=== PATIENT | male | born 1970 | race Caucasian/White ===

== ENCOUNTER 2022-06-09 08:00 | Outpatient (CLI) | payer BC, SELFPAY ==
--- NOTE | 2022-06-09 08:15 | MR_ITS ---
[address] [address] Phone:?[phone] Fax:?[phone] Referring Physician Information: Walter Spears M.D. [address] [facility] [address] Phone:?[phone] Fax:?[phone] Patient:Miguelina Lopez D.O.B:?1970 Sex:?Male Phone:?[phone] [facility] MRN:?[id number] Exam Date:?06/09/2022 ? EXAM: MRI OF THE RIGHT SHOULDER CLINICAL INFORMATION: The patient is a 52-year-old with right shoulder pain. Evaluate for rotator cuff tear. PRIOR SURGERY: None reported. COMPARISON STUDIES: There are no prior studies available for comparison. TECHNICAL INFORMATION: Using a 1.5T MR scanner and a localizing shoulder surface coil: 3.0 mm?coronal obliques: PD, T2, STIR 3.0 mm?sagittal obliques: PD, T2 3.0 mm?axials: PD, T2 FINDINGS: Articular/Extraarticular collections: Effusion: Mild. Subacromial/subdeltoid: Mild to moderate fluid is seen within the subacromial/subdeltoid bursa, in keeping with changes of bursitis. Low signal intensity material within the bursa is noted anterolaterally on coronal series 4 image 11 and on sagittal series 7 image 6. The low signal intensity material measures approximately 15 mm in greatest dimension. The findings are in keeping with hydroxyapatite deposition and/or calcific bursitis. Subcoracoid: No evidence for bursitis. Osseous structures: Proximal humerus: No evidence for bony injury to the proximal humerus can be seen. There is no evidence for greater tuberosity fracture. No Hill-Sachs or reverse Hill-Sachs deformity is seen. Glenoid: No acute bony abnormality of the glenoid fossa or glenoid neck can be seen. Acromioclavicular joint: Mild changes of acromioclavicular joint arthrosis are present. Coracoacromial arch: Acromion morphology: Type I. No evidence for os acromiale. Acromiohumeral space: Mildly narrowed. Coracohumeral space: Within normal limits. Rotator cuff and deltoid: Supraspinatus: Mild to moderate changes of supraspinatus tendinosis are present. There is low signal intensity material within the supraspinatus tendon fibers anteriorly and posteriorly, in keeping with hydroxyapatite deposition and/or calcific tendinitis. The largest area of intrasubstance low signal intensity measures approximately 7 mm in greatest dimension. No well-defined full or partial-thickness tearing of the supraspinatus tendon fibers can be seen. No atrophic changes of the supraspinatus muscle belly are present. Infraspinatus: Mild to moderate infraspinatus tendinosis can be seen. Low signal intensity material within the distal tendon fibers can be seen, in keeping with calcific tendinosis. No full or partial-thickness tearing is present. No atrophic changes of the infraspinatus muscle belly are identified. Teres minor: No evidence for tendinosis, tearing, or associated muscle belly atrophy. Subscapularis: There is poorly defined full-thickness tearing of the subscapularis tendon seen on axial series 3 image 16 and on sagittal series 7 image 13. The area of tearing is thought to measure approximately 15 mm in greatest dimension. Atrophic changes of the subscapularis muscle belly can be seen on sagittal series 7 image 27. Deltoid: No evidence for strain or tearing. Biceps tendon: Mild tendinosis and flattening of the long head of the biceps can be seen. There is no evidence for biceps rupture. No dislocation or subluxation is identified. Glenohumeral joint and labrum: Articular Cartilage: No chondral injuries along the articular surfaces of the glenohumeral articulation can be seen. Labrum: The anterior, posterior, superior, and inferior portions of the labrum appear intact. No evidence for paralabral ganglion cyst formation can be seen. Capsular Soft Tissues: No definite capsular abnormalities of the glenohumeral joint are seen. No evidence for capsular tearing is present and there are no MR signs of adhesive capsulitis. CONCLUSION: 1. Supraspinatus and infraspinatus calcific tendinosis as described above. No full or partial-thickness tearing of the supraspinatus or infraspinatus tendon fibers can be seen. 2. Suspected full-thickness tearing of the subscapularis tendon with associated muscle belly atrophy. 3. Mild to moderate subacromial/subdeltoid bursal fluid, with low signal intensity material. The findings are in keeping with calcific bursitis and/or hydroxyapatite deposition. 4. Mild tendinosis and flattening of the long head of the biceps. 5. Mild acromioclavicular joint arthrosis with mild narrowing of the acromiohumeral space. [facility]EC Electronically signed on 06/09/2022 1:38:00 PM by Mendez Lopez M.D.
== END 2022-06-09 08:01 | disposition home or self-care (01) ==
LOC: MRI 08:01
PROVIDERS: PCP Surgery; Visit Provider Orthopaedic Surgery Sports Medicine
DX: M25.511 Pain in right shoulder (principal); M75.101 Unspecified rotator cuff tear or rupture of right shoulder, not specified as traumatic; M75.51 Bursitis of right shoulder
CPT/HCPCS: 73221

== ENCOUNTER 2025-01-13 17:23 | Inpatient (IN) | payer BC, SELFPAY ==
--- OUTSIDE RECORDS SUMMARY | 2025-01-13 17:25 | XMS_ITS | Clinical Summary ---
Author Organization [employer] [facility] Address [address] [place] [address] Care Team Providers Care Shaper Set Up Operator Name Role Phone Peace Maloneydavide Agarwal PsyD, LP Unavailable [phone] Allergies No known active allergies Medications ibuprofen (ADVIL; MOTRIN) 200 mg tablet Take 2 tablets by mouth 4 times daily if needed. 0 7 Active sildenafiL, pulm.hypertension, (REVATIO) 20 mg tabletIndications: Erectile dysfunction, unspecified erectile dysfunction type TAKE 2-5 TABLETS BY MOUTH 30 MINUTES BEFORE SEXUAL ACTIVITY NEEDED. 200 Tablet 4 Active busPIRone (BUSPAR) 30 mg tabletIndications: VASQUEZ (generalized anxiety disorder) Take 1 Tablet (30 mg) by mouth two times daily. 180 Tablet 3 5 Active escitalopram oxalate (LEXAPRO) 10 mg tabletIndications: VASQUEZ (generalized anxiety disorder) Take 1 Tablet (10 mg) by mouth once daily. 90 Tablet 3 5 Active lisinopriL (PRINIVIL; ZESTRIL) 10 mg tabletIndications: Primary hypertension Take 1 Tablet (10 mg) by mouth once daily. 90 Tablet 3 5 Active rosuvastatin (CRESTOR) 20 mg tabletIndications: Mixed hyperlipidemia Take 1 Tablet (20 mg) by mouth at bedtime. 90 Tablet 3 5 Active lisinopriL (PRINIVIL; ZESTRIL) 10 mg tabletIndications: Primary hypertension TAKE ONE TABLET BY MOUTH ONE TIME DAILY 30 Tablet 5 025 Discontin ued(Reord er (E-cancel not sent)) busPIRone (BUSPAR) 30 mg tabletIndications: Anxiety TAKE ONE TABLET BY MOUTH TWICE DAILY 60 Tablet 5 025 Discontin ued(Reord er (E-cancel not sent)) escitalopram oxalate (LEXAPRO) 10 mg tabletIndications: Anxiety Take 1 Tablet (10 mg) by mouth once daily. 30 Tablet 5 025 Discontin ued(Reord er (E-cancel not sent)) rosuvastatin (CRESTOR) 10 mg tabletIndications: Mixed hyperlipidemia TAKE ONE TABLET BY MOUTH ONE TIME DAILY AT BEDTIME 30 Tablet 5 025 Discontin ued(Reord er (E-cancel not sent)) rosuvastatin (CRESTOR) 10 mg tabletIndications: Mixed hyperlipidemia Take 1 Tablet (10 mg) by mouth at bedtime. 90 Tablet 3 5 025 Discontin ued(*Medi cation adjustmen t) Active Problems Problem Noted Date Diagnosed Date Mixed hyperlipidemia 12/15/2024 Primary hypertension 12/15/2024 Insomnia 03/19/2015 Erectile dysfunction 03/19/2015 Sigmoid diverticulitis 03/19/2015 Anxiety 03/19/2015 Adenomatous colon polyp 02/27/2015 Overview (07/02/2023): Colonoscopy 02/2015 polyps repeat in 3 years Colonoscopy 04/2018 polyp, repeat in 5 years Colonoscopy 06/2023 SSA, repeat in 5 years Calcific tendinitis of right shoulder 03/27/2014 Encounters Date Type Department Care Team Description 01/04/2025 1:00 PM CDT Phone Office Visit [facility] [address] [facility] [address] [place] [address] Nathalia Maloney, Russell, LP Individual Therapy; Phone Visit 12/15/2024 3:40 PM CDT Office Visit [facility] [address] [place] [address] Sushma Gonzales PA Physical (54 years old) 12/15/2024 Travel 11/23/2024 Refill [facility] [address] [place] [address] Sushma Gonzales PA Refill Request (Lisinopril, Buspirone, Escitalopram Oxalate, Rosuvastatin) 11/09/2024 1:00 PM CDT Phone Office Visit [facility] [address] [place] [address] Nathalia Maloney, PsItzel, LP MH Trmt Plan; Individual Therapy; Phone Visit 11/09/2024 Travel 10/23/2024 Refill [facility] [address] [place] [address] Sushma Gonzales PA Refill Request (Lisinopril) from Last 3 Months Immunizations Immunization Administration Dates Next Due Influenza RIV4 (Age 18+ Years) PRESERV FREE 11/2021 Influenza, IIV4 04/16/2021,04/07/2020 Td (Age >=7 Years) 11/03/2021 Tdap 04/08/2015 Family History Medical History Relation Name Comments Good Health Father Diabetes Mother Hypertension Mother Relation Name Status Comments Father Mother Social History Tobacco Use Types Packs/Day Years Used Date Smoking Tobacco: Never Smokeless Tobacco: Never Tobacco Cessation:Counseling Given: Yes Alcohol Use Standard Drinks/Week Comments Yes 0 (1 standard drink = 0.6 oz pur e alcohol) 1-2 drinks/week PHQ-2 Answer Date Recorded PHQ-2 TOTAL SCORE 0 12/15/2024 Social Connections Answer Date Recorded Do you often feel lonely or isolated from those around you? 0 12/15/2024 Alcohol Use Answer Date Recorded How often do you have a drink containing alcohol ? 2 10/29/2021 How many drinks containing a lcohol do you have on a typical day when you are drinking? 0 10/29/2021 How often do you have five or more drinks on one occasion? 0 10/29/2021 Financial Resource Strain Answer Date R ecorded Difficulty of Paying Living Expenses 3 12/15/2024 Difficulty of Paying Living Expenses Not on file 12/15/2024 Food Insecurity Answer Date Recorded Do you worry your food will run out before you are able to buy more? 1 12/15/2024 Transportation Needs Answer Date Record ed Does lack of transportation keep you from medica l appointments? 1 12/15/2024 Does lack of transportation keep you from work, meetings or getting things that you need? 1 12/15/2024 Housing Stability Answer Date Recorded What is your housing situation today? 1 12/15/2024 Utilities Answer Date Recorded Do you have trouble paying f or utilities (for example, heat, electricity, water, phone)? 1 12/15/2024 Sex and Gender Information Value Date Recorded Sex Assigned at Male 12/21/2019 11:50 AM CDT Legal Sex Male 6:25 PM MEDICAL PRACTICE ADMINISTRATOR Gender Identity Male 12/21/2019 11:50 AM CDT Sexual Orientation Straight 12/21/2019 11 :50 AM CDT Obstetrics History Last Filed Vital Signs Vital Sign Reading Time Taken Comments Blood Pressure 116/80 12/15/2024 3:38 PM CDT Pulse 90 12/15/2024 3:38 PM CDT Temperature 36.4 C (97.5 F) 06/04/2024 4:30 PM MEDICAL PRACTICE ADMINISTRATOR Respiratory Rate 16 06/04/2024 4:30 PM MEDICAL PRACTICE ADMINISTRATOR Oxygen Saturation 97% 12/15/2024 3:38 PM CDT Inhaled Oxygen Concentration - - Weight 122.5 kg (270 lb) 12/15/2024 3:38 PM CDT Height 178.4 cm (5' 10.25) 12/15/2024 3:38 PM C DT Body Mass Index 38.47 12/15/2024 3:38 PM CDT Plan of Treatment Upcoming Encounters Date Type Department Care Team (Late st Contact Info) Description 02/01/2025 1:00 PM CDT Phone Office [facility] [place] [address] [facility] [address] [address] Nathalia Maloney PsyD, LP [facility] [address] [address] 03/07/2025 2:00 PM MEDICAL PRACTICE ADMINISTRATOR Phone Office Visit [facility] [address] [address] Nathalia Maloney PsyD, LP [address] [facility] [address] [address] 04/04/2025 2:00 PM MEDICAL PRACTICE ADMINISTRATOR Phone Office Visit [facility] [address] [place], [place] [id number] Nathalia Maloney PsyD, LP [address] [place], [place] [id number] 05/09/2025 3:00 PM MEDICAL PRACTICE ADMINISTRATOR Phone Office Visit [facility] [address] [place], [place] [phone] Nathalia Maloney PsyD, LP [address] [place], [place] [id number] Health Maintenance Due Date Last Done Comments Hepatitis B series for 19+ ( 1 of 3 - 19+ 3-dose series) 1987 Pneumococcal series for age 50+ (1 of 1 - PCV) 2018 Zoster (shingles) series for age 50+ (1 of 2) 2018 COVID-19 vaccine series ( season) 2024 09/29/2021, 03/19/2021, 07/28/2020 Influenza Vaccine (#1) 2024 , 04/16/2021, 04/07/2020 BMI (ht and wt on same day) for age 18+ 12/15/2025 12/15/2024, 07/30/2023, 07/06/2022, Additional history exists Depression screening for age 12+ 12/15/2025 12/15/2024, 08/02/2023, 07/30/2023, Additional history exists Colonoscopy through age 75 06/29/202806/29, 06/30/2023, 05/06/2018, Additional history exists Lipids for age 45-75 12/15/2029 12/15/2024, 01/10/2024, 07/30/2023, Additional history exists Tetanus booster 11/04/2031 11/03/2021, 04/08/2015 RSV vaccine for adults or (1 - 1-dose 75+ series) 2043 HIV for age 15-65 Completed 07/30/2023 Hepatitis C screening for ag e 18-79 Completed 07/30/2023 Procedures Procedure Name Priority Date/Time Associated Diagnosis Comments BASIC METABOLIC PANEL Routine 12/15/2024 4:33 PM CDT Screening for diabetes mellitus (DM) LIPID PANEL W REFLEX MEASURED LDL Routine 12/15/2024 4:33 PM CDT Mixed hyperlipidemia PSA TOTAL Routine 12/15/2024 4:33 PM CDT Encounter for screening for malignant neoplasm of prostate ANTI HIV 1/2 Routine 07/30/2023 4:13 PM CDT Encounter for screening for human immunodeficiency virus (HIV) ANTI HCV Routine 07/30/2023 4:13 PM CDT Encounter for hepatitis C screening test for low risk patient COLONOSCOPY 06/30/2023 10:24 AM CDT from Last 3 Months or Most Recently Relevant to Health Maintenance Results * (ABNORMAL) LIPID PANEL W REFLEX MEASURED LDL (12/15/2024 4:33 PM CDT) CHOLESTEROL, TOTAL 135 <200 mg/dL 12/16/2024 4:12 AM CDT [facility] TRIGLYCERIDES 189(H) <150 mg/dL 12/16/2024 4:12 AM CDT [facility] HDL CHOLESTEROL 51 > OR = 40 mg/dL 12/16/2024 4:12 AM CDT [facility] NON HDL CHOLESTEROL 84 <130 mg/dL (calc) 12/16/2024 4:12 AM CDT [facility] Comment: For patients with diabetes plus 1 major ASCVD risk factor, treating to a non-HDL-C goal of <100 mg/dL (LDL-C of <70 mg/dL) is considered a therapeutic option. CHOL/HDLC RATIO 2.6 <5.0 (calc) 12/16/2024 4:12 AM CDT [facility] LDL-CHOLESTEROL 58 mg/dL (calc) 12/16/2024 4:12 AM CDT [facility] Comment: Reference range: <100 Desirable range <100 mg/dL for primary prevention; <70 mg/dL for patients with CHD or diabetic patients with > or = 2 CHD risk factors. LDL-C is now calculated using the Cristobal calculation, which is a validated novel method providing better accuracy than the Friedewald equation in the estimation of LDL-C. Ermias MIDDLETON et al. JOJO. 2013;310(06): 9020-4627 (http://education.[employer]/faq/AJS408) Blood BLOOD SPECIMEN / Unknown [facility] / Unknown 12/15/2024 4:33 PM CDT 12/15/2024 4:34 PM CDT Sushma MEZA CHEMISTRY Final Res ult Performing Organization Address [facility] de Phone Number [facility] [address] [address], * PSA TOTAL (DIAG OR SCREEN) (12/15/2024 4:33 PM CDT) PSA, TOTAL 1.27 < OR = 4.00 ng/mL 12/16/2024 4:35 AM CDT [facility] Comment: The total PSA value from this assay system is standardized against the WHO standard. The test result will be approximately 20% lower when compared to the equimolar-standardized total PSA (Antoinette Shabnam). Comparison of serial PSA results should be interpreted with this fact in mind. This test was performed using the Siemens chemiluminescent method. Values obtained from different assay methods cannot be used interchangeably. PSA levels, regardless of value, should not be interpreted as absolute evidence of the presence or absence of disease. Blood BLOOD SPECIMEN / Unknown [facility] / Unknown 12/15/2024 4:33 PM CDT 12/15/2024 4:34 PM CDT Sushma MEZA CHEMISTRY Final Res ult Performing Organization Address [facility]/ZIP Co de Phone Number [facility] [address] [address], [place] [phone] * BASIC METABOLIC PANEL (12/15/2024 4:33 PM CDT) Pathologist [facility] SODIUM 139 135 - 146 mmol/L 12/16/2024 4:12 AM CDT [facility] POTASSIUM 4.3 3.5 - 5.3 mmol/L 12/16/2024 4:12 AM CDT [facility] CARBON DIOXIDE 24 20 - 32 mmol/L 12/16/2024 4:12 AM CDT [facility] GLUCOSE 95 65 - 99 mg/dL 12/16/2024 4:12 AM CDT [facility] Comment: Fasting reference interval CALCIUM 9.0 8.6 - 10.3 mg/dL 12/16/2024 4:12 AM CDT [facility] CREATININE 0.94 0.70 - 1.30 mg/dL 12/16/2024 4:12 AM CDT [facility] BUN/CREATININE RATIO SEE NOTE: 6 - 22 (calc) 12/16/2024 4:12 AM CDT [facility] Comment: Not Reported: BUN and Creatinine are within reference range. EGFR 95 > OR = 60 mL/min/1. 73m2 12/16/2024 4:12 AM CDT [facility] UREA NITROGEN (BUN) 10 7 - 25 mg/dL 12/16/2024 4:12 AM CDT [facility] ELECTROLYTE BALANCE 10 7 - 17 mmol/L (calc) 12/16/2024 4:12 AM CDT [facility] CHLORIDE 105 98 - 110 mmol/L 12/16/2024 4:12 AM CDT [facility] Blood BLOOD SPECIMEN / Unknown [facility] / Unknown 12/15/2024 4:33 PM CDT 12/15/2024 4:34 PM CDT us Sushma MEZA CHEMISTRY Final Res ult [facility] [address] [place] [address], [place] [phone] * ANTI HCV [02911.2] (07/30/2023 4:13 PM CDT) Pathologist [facility] HEPATITIS C ANTIBODY Non-Reacti ve Non-React nisha 07/30/2023 9:51 PM CDT [facility] Comment:Please note, per www .CDC.gov: If a patient is known to be at high risk of HCV infection, or is symptomatic, and the physician's suspicion of HCV infection is high, HCV RNA testing is often employed and is of diagnostic value, even after an initial negative anti-HCV test result. Blood BLOOD SPECIMEN / Unknown [facility] / Unknown 07/30/2023 4:13 PM CDT 07/30/2023 4:16 PM CDT Sushma MEZA SEND OUTS Final Res ult Performing Organization Address [facility] Co de Phone Number [facility] [address] [place] [address], [place] * ANTI HIV 1/2 [17397.0] (07/30/2023 4:13 PM CDT) HIV-1/HIV-2 SCREEN Non-Reacti ve Non-Reacti ve 07/30/2023 9:51 PM CDT [facility] Comment:HIV-1 p24 and HIV-1/ HIV-2 Ab Not Detected. Blood BLOOD SPECIMEN / Unknown [facility] / Unknown 07/30/2023 4:13 PM CDT 07/30/2023 4:16 PM CDT Sushma MEZA SEND OUTS Final Res ult Performing Organization Address City/[facility] Co de Phone Number [facility] [address] [place] [address], [place] * COLONOSCOPY (06/30/2023 10:24 AM CDT) 06/30/2023 10:2 4 AM CDT Narrative Transcriptions Ermias Shetty MD - 06/30/2023 11:26 AM CDT Patient Name: Chadd Lopez Procedure Date: 06/30/2023 Gender: Male Date of : 1970 Admit Type: Outpatient Procedure: Colonoscopy Proceduralist: Ermias Shetty MD , Effie Gutierrez RN(Nurse), Swapna Vazquez RN (Nurse) Indications/Pre-Op Diagnosis: High risk colon cancer surveillance:Personal history of sessile serrated colon polyp(less than 10 mm in size) with no dysplasia, Last colonoscopy: May 2018 Medications: Fentanyl 100 micrograms IV, Midazolam 4 mgIV, The level of sedation administered wasmoderate Procedure Description: The patient had risks, benefits and alternatives explained to andgave informed consent. The patient had a stable cardiopulmonary status and judged an adequate candidate for conscious sedation. The [id number] was passed through the anus and advanced to the cecum, identified by appendiceal orifice and ileocecal valve. Thecolonoscopy was performed without difficulty. The patient tolerated the procedure well. The quality of the bowel preparation was good. The ileocecal valve, appendiceal orifice, and rectum were photographed. Complications: No immediate complications. Estimated Blood Loss & Specimen: Estimated blood loss: none. Specimen collected - Yes and sent to Laboratory Findings: The perianal and digital rectal examinations were normal. A 3 mm polyp was found in the ascending colon. The polyp was sessile. The polyp was removed with a cold snare. Resection and retrieval were complete. A few small-mouthed diverticula were found in the descending colon. There was evidence of a prior end-to-end colo-colonic anastomosis inthe recto-sigmoid colon. This was patent and was characterized by healthy appearing mucosa. The exam was otherwise without abnormality. Impressions/Post-Op Diagnosis: - One 3 mm polyp in the ascending colon, removed with a cold snare. Resected and retrieved. - Diverticulosis in the descending colon. - Patent end-to-end colo-colonic anastomosis, characterized byhealthy appearing mucosa. - The examination was otherwise normal. Recommendation: - Patient has a contact number available for emergencies. The signsand symptoms of potential delayed complications were discussed with the patient. Return to normal activities tomorrow. Written discharge instructions were provided to the patient. - Resume previous diet. - Continue present medications. - Await pathology results. - Repeat colonoscopy is recommended. The colonoscopy date will be determined after pathology results from today's exam become available for review. Moderate Sedation: A time out was performed before the procedure. Moderate (conscious) sedation was administered by the endoscopy nurse and supervised bythe endoscopist. The following parameters were monitored: oxygensaturation, heart rate, blood pressure, EKG, CO2, respiratory rate, adequacy of pulmonary ventilation and reponse to care. Please refer to the patient's medical record flowsheets and nursing notes for moderate sedation details. Total physician intraservice time was 22 minutes. Ermias Shetty MD 06/30/2023 11:26:31 AM This report has been signed electronically. Note Initiated On: 06/30/2023 10:24 AM Procedure Code(s): --- Professional --- 60005, Colonoscopy, flexible; with removalof tumor(s), polyp(s), or other lesion(s) bysnare technique Diagnosis Code(s): --- Professional --- Z86.010, Personal history of colonicpolyps D12.2, Benign neoplasm of ascending colon Z98.0, Intestinal bypass and anastomosisstatus K57.30, Diverticulosis of large intestine without perforation or abscess withoutbleeding CPT copyright 2021 [employer]. All rights reserved. The codes documented in this report are preliminary and upon fiscal analyst reviewmay be revised to meet current compliance requirements. Scope In: 10:53:26 AM Scope Withdrawal Time 0 hours 15 minutes 56 seconds Scope Out: 11:12:37 AM us Ermias Shetty MD PROCEDURE ORD Final Res ult from Last 3 Months or Most Recently Relevant to Health Maintenance Insurance [facility] Care Teams Shaper Set Up Operator Relationship Specialty Start Date End Date Nathalia Maloney PsyD, LP [address] [facility] [address] [place] [address] Mental Health Provider Psychology 07/12/19
[2025-01-13 17:29] VITALS: BP 142/85; PULSE 103; RESP 24; TEMP 35.5; O2SAT 93
--- NOTE | 2025-01-13 17:49 | CRLHL7_ITS ---
For Patients: As a result of the Century Cures Act, medical imaging exams and procedure reports are released immediately into your electronic medical record. You may view this report before your referring provider. If you have questions, please contact your health care provider. INDICATION: Lower abdominal pain. TECHNIQUE: CT abdomen and pelvis acquired with 99 cc Isovue 370 IV contrast. COMPARISON: None. FINDINGS: Lower chest: Bibasilar atelectasis. Liver: Unremarkable. Gallbladder and bile ducts: Cholecystectomy. No suspicious biliary dilatation. Pancreas: Unremarkable. Spleen: Unremarkable. Adrenal glands: Unremarkable. Kidneys: Symmetric renal enhancement. No hydronephrosis or hydroureter. No obstructing calculi. Exophytic left renal cyst. GI tract: Duodenal diverticulum measuring up to 3.0 cm. Colonic diverticulosis with prominent pericolonic edema/inflammatory fat stranding along the sigmoid colon within the left lower quadrant and region of numerous diverticula. Tiny foci of extraluminal gas are noted in the vicinity (for example series 2, image 113). No well-delineated fluid collection/abscess appreciated at this time. No bowel obstruction. Vasculature: No abdominal aortic aneurysm. Grossly patent vasculature. Lymph nodes: No suspicious lymphadenopathy. Peritoneum/Abdominal Wall: Trace ascites. Small foci of free air, as above. No acute abnormality of the abdominal wall. Pelvis: Normal bladder. Unremarkable prostate and seminal vesicles. Bones: No acute abnormality. IMPRESSION: 1. Findings compatible with acute sigmoid colonic diverticulitis with tiny foci of extraluminal gas noted in vicinity of inflamed diverticula, indicative of focal perforation. Surrounding phlegmonous changes are evident without well-delineated fluid collection/abscess appreciated at this time. Please note that all CT scans at this facility use dose modulation, iterative reconstruction, and/or weight-based dosing when appropriate to reduce radiation dose to as low as reasonably achievable. Dictated by Mendez Lau MD @ 01/13/2025 6:55:57 PM (Electronically Signed)
--- NOTE | 2025-01-13 17:50 | ED.ABDPAIN ---
HPI - Abdominal Pain General Chief Complaint: Abdominal Pain Stated Complaint: Pain of Left side Time Seen by Provider: 01/13/25 17:28 History of Present Illness HPI narrative: This 54-year-old male comes in reporting left-sided abdominal pain for the past 2 days. He states that the pain is a constant pain and is worse with cough and other movements. He does have a history of diverticulitis and states that he had his sigmoid colon removed 24 years ago. He has been doing well since then except as had a few episodes of pain occasionally since then. He states that he feels tired despite sleeping. He does not report any fevers. He does not have any dysuria symptoms or altered bowel function. Related Data Home Medications ?Medication ?Instructions ?Recorded ?Confirmed escitalopram oxalate 10 mg tablet 10 mg PO DAILY 06/02/22 01/18/25 sildenafil (pulm.hypertension) 20 20 mg PO 06/02/22 06/12/22 mg tablet lisinopril 10 mg tablet 10 mg PO DAILY 01/13/25 01/18/25 rosuvastatin 20 mg tablet 20 mg PO QPM 01/13/25 01/18/25 buspirone 30 mg tablet 30 mg PO BID 01/14/25 01/18/25 Allergies Allergy/AdvReac Type Severity Reaction Status Date / Time No Known Drug Allergies Allergy Verified 01/25/25 14:07 Review of Systems Status of ROS Reports: 10 or more systems reviewed and unremarkable except as noted in History and below Narrative Constitutional: No fevers, no weight gain or loss. Eyes: No discharge. No vision changes. HENT: No congestion, no sore throat, no ear pain. Cardiovascular: No chest pain, no palpitations. Respiratory: No shortness of breath, no wheezes, no cough. Gastrointestinal: No vomiting, no diarrhea. Left-sided abdominal pain as described above. Genitourinary: No dysuria, no hematuria. Musculoskeletal: Normal range of motion. Skin: No rashes, no pruritis. Neurological: No dizziness, weakness, sensory change, speech change. Endo/Heme/Allergies: No bruising or bleeding. No polydipsia. Pysch: no suicidality, no anxiety, no insomnia. All other systems reviewed and are negative. [facility] History (Updated 01/14/25 @ 15:22 by Audrey Mchugh MD) Status post colectomy ?Z90.49 - Acquired absence of other specified parts of digestive tract (ICD-10) History of resection of small bowel (08/03/17) ?Z90.49 - Acquired absence of other specified parts of digestive tract (ICD-10) S/P herniorrhaphy (04/23/15) ?Z98.890 - Other specified postprocedural states (ICD-10) ?Z87.19 - Personal history of other diseases of the digestive system (ICD-10) Hx laparoscopic cholecystectomy (04/23/15) ?Z90.49 - Acquired absence of other specified parts of digestive tract (ICD-10) History of knee surgery ?Z98.890 - Other specified postprocedural states (ICD-10) History of shoulder surgery ?Z98.890 - Other specified postprocedural states (ICD-10) History of appendectomy ?Z90.49 - Acquired absence of other specified parts of digestive tract (ICD-10) Family History (Updated 01/14/25 @ 15:20 by Audrey Mchugh MD) Mother High blood pressure Diabetes Psychiatric disorder Social History (Updated 01/14/25 @ 15:20 by Audrey Mchugh MD) Narrative: 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 He does not smoke. Rare alcohol. What is your current living situation?: I presently have a place to live Problems where you live: no known problems Problems where you live details: n/a In the past 12 months, utilities in danger of being shut off: no In past 12 months, lack of transportation kept you from medical appts, meetings, work, or getting things needed for daily living: no In the past 12 mos, have been you worried that your food would run out before you had money to buy more?: never true In the past 12 mos, the food you bought just didn't last and you didn't have money to buy more?: never true Highest level of school completed/degree received: high school graduate Smoking Status: Never smoker Do you use any of these nicotine containing products: None Second hand tobacco smoke exposure: No How often do you have a drink containing alcohol: never AUDIT-C Alcohol total score: 0 Non-prescribed substance use: marijuana (any form) Caffeine: No How often does anyone, including family, friends and others, physically hurt you: never How often does anyone, including family, friends and others, insult or talk down to you: never How often does anyone, including family, friends and others, threaten you with harm: never How often does anyone, including family, friends and others, scream or curse at you: never service: No Exam Narrative: Exam Narrative: Constitutional: Well-developed, well-nourished, no acute distress. HEENT: Normocephalic, atraumatic. Neck: Normal range of motion. Nontender. Supple. Heart: Regular. No murmurs. Normal rate. Intact distal pulses. Lungs: Clear to auscultation. No chest discomfort. No wheezes, rhonchi, or rales. Abdomen: Normal bowel sounds. Left-sided tenderness. No rebound tenderness. Genitalia: Deferred. Back: No midline tenderness. Normal range of motion. Extremities: Normal range of motion. No injury. Skin: Intact. No rash. Warm. No erythema or pallor. Neurologic: No altered sensation. No weakness. Alert and oriented. Psychiatric: No suicidality. No anxiety or depression. No insomnia. Nursing notes and vitals signs are reviewed. Const: Vital Signs, click to edit/add: Vital Signs - 24 hr 01/13/25 17:29 01/13/25 19:28 01/13/25 20:35 Temperature 96 F L 99.2 F Pulse Rate [Pulse Oximeter] 103 H 86 Pulse Rate [Right Pulse Oximeter] 89 Respiratory Rate 24 16 15 Blood Pressure [Ri ght Arm] 140/75 H Blood Pressure [Ri ght Upper Arm] 142/85 H 138/73 Pulse Oximetry 93 94 96 Oxygen Delivery Me thod Room Air Room Air Room Air 01/13/25 20:35 Temperature Pulse Rate [Pulse Oximeter] Pulse Rate [Right Pulse Oximeter] Respiratory Rate Blood Pressure [Ri ght Arm] Blood Pressure [Ri ght Upper Arm] Pulse Oximetry Oxygen Delivery Me thod Room Air Course Vital Signs Vital signs: Initial Vital Signs Temperature 96 F L 01/13/25 17:29 Temperature Source Temporal Artery Scan 01/13/25 17:29 Pulse Rate 103 H 01/13/25 17:29 Respiratory Rate 24 01/13/25 17:29 Blood Pressure 142/85 H 01/13/25 17:29 Blood Pressure Mean 104 01/13/25 17:29 Blood Pressure Position Sitting 01/13/25 17:29 Pulse Oximetry 93 01/13/25 17:29 Oxygen Delivery Method Room Air 01/13/25 17:29 Vital Signs Temperature 96 F L 01/13/25 17:29 Pulse Rate 103 H 01/13/25 17:29 Respiratory Rate 24 01/13/25 17:29 Blood Pressure 142/85 H 01/13/25 17:29 Pulse Oximetry 93 01/13/25 17:29 Oxygen Delivery Method Room Air 01/13/25 17:29 Temperature 98.0 F 01/16/25 11:27 Pulse Rate 61 01/16/25 11:27 Respiratory Rate 16 01/16/25 11:27 Blood Pressure 143/90 H 01/16/25 11:27 Pulse Oximetry 95 01/16/25 11:27 Oxygen Delivery Method Room Air 01/16/25 11:27 Medications Administered Medications: Discontinued Medications Generic Name Dose Route Start Last Admin Trade Name Freq PRN Reason Stop Dose Admin Buspirone HCl 30 mg 01/14/25 09:00 01/16/25 09:33 Buspirone 10 Mg Tablet PO 30 mg DAILY GONZÁLEZ Administration Enoxaparin Sodium 40 mg 01/13/25 21:00 01/15/25 22:52 Enoxaparin 40 Mg/0.4 Ml Inj SUBCUT 40 mg HS GONZÁLEZ Administration Escitalopram Oxalate 10 mg 01/14/25 09:00 01/16/25 09:34 Escitalopram 10 Mg Tablet PO 10 mg DAILY GONZÁLEZ Administration Piperacillin Sod/Tazobactam 100 mls @ 200 mls/hr 01/13/25 19:06 01/13/25 20:04 Sod 3.375 gm/ Sodium Chloride IVPB 01/13/25 19:07 Infused ONCE ONE Infusion Piperacillin Sod/Tazobactam 100 mls @ 200 mls/hr 01/14/25 02:00 01/16/25 09:35 Sod 3.375 gm/ Sodium Chloride IVPB Infused Q6H GONZÁLEZ Infusion Lactated Ringer's 1,000 mls @ 75 mls/hr 01/13/25 21:05 01/14/25 10:26 Lactated Ringers 1000 Ml IV Infused .[id number] GONZÁLEZ Infusion Lactated Ringer's 500 mls @ 500 mls/hr 01/13/25 21:15 01/13/25 22:56 Lactated Ringers 500 Ml IV 01/13/25 22:14 Infused .Q1H ONE Infusion Lactated Ringer's 1,000 mls @ 130 mls/hr 01/14/25 07:46 01/15/25 14:03 Lactated Ringers 1000 Ml IV Infused .[id number] GONZÁLEZ Infusion Potassium Chloride 10 meq in 100 mls @ 100 mls/hr 01/14/25 10:18 01/14/25 13:57 Potassium Chloride IVPB 01/14/25 11:17 Infused ONCE ONE Infusion Lactated Ringer's 500 mls @ 500 mls/hr 01/14/25 10:18 01/14/25 12:01 Lactated Ringers 500 Ml IV 01/14/25 11:17 Infused .Q1H ONE Infusion Piperacillin Sod/Tazobactam 100 mls @ 200 mls/hr 01/16/25 05:00 01/16/25 09:34 Sod 3.375 gm/ Sodium Chloride IVPB Infused Q6H GONZÁLEZ Infusion Ertapenem 1 gm/ Sodium 100 mls @ 200 mls/hr 01/16/25 12:00 01/16/25 12:50 Chloride IVPB Infused Q24H GONZÁLEZ Infusion Insulin Aspart 0 unit 01/14/25 07:30 01/16/25 12:46 Insulin Aspart 100 Unit/Ml SUBCUT Not Given ACHS [facility] Protocol Ketorolac Tromethamine 30 mg 01/13/25 21:00 01/15/25 22:47 Ketorolac 30 Mg/Ml Inj IVP 30 mg Q6H GONZÁLEZ Administration Ketorolac Tromethamine 30 mg 01/16/25 05:00 01/16/25 11:28 Ketorolac 30 Mg/Ml Inj IVP 30 mg Q6H GONZÁLEZ Administration Pantoprazole Sodium 40 mg 01/13/25 21:15 01/13/25 21:17 Pantoprazole Sodium 40 Mg Inj IVP 01/13/25 21:16 40 mg ONCE ONE Administration Rosuvastatin Calcium 20 mg 01/14/25 18:00 01/15/25 18:08 Rosuvastatin Calcium 10 Mg Tablet PO 20 mg QPM GONZÁLEZ Administration Sodium Chloride 5 ml 01/13/25 21:00 01/16/25 09:33 Sodium Chloride 0.9 % (Flush) 10 Ml Syringe IVF 5 ml BID GONZÁLEZ Administration MDM - Abdominal Pain MDM Narrative Medical decision making narrative: This patient comes in with left-sided abdominal pain and is suspicious for recurrent diverticulitis. CT scan is obtained and does show diverticulitis with a very small foci of free air suggesting a micro perforation. His white count returns at 17. He continues to have normal vital signs and is not requesting any pain medicines. I did speak with the surgeon on-call who recommended admission overnight with IV antibiotic and recheck in the morning regarding the possibility of complication of perforation. I spoke with Dr. Hugo, hospitalist on-call who agrees with this plan. The patient did receive an IV dose of Zosyn here. Lab Data Labs: Lab Results 01/13/25 01/13/25 01/13/25 Range/Units 17:34 18:06 20:51 WBC 17.25 H (4.50-11.00) K/uL RBC 5.05 (4.30-5.90) m/uL Hgb 15.2 (13.5-17.5) gm/dL Hct 44.7 (37.0-53.0) % MCV 89 (80-100) fL MCH 30 (26-34) pg MCHC 34 (32-36) gm/dL RDW Coeff of Govind 12.7 (11.5-15.5) % Plt Count 204 (140-440) K/uL Neut % (Auto) 81.4 H (42.0-72.0) % Lymph % (Auto) 5.3 L (20-44) % Valencia % (Auto) 12.9 H (0.0-11.0) % Eos % (Auto) 0.1 (0.0-7.0) % Baso % (Auto) 0.2 (0.0-3.0) % Neut # (Auto) 14.00 H (1.7-7.0) K/uL Lymph # (Auto) 0.90 (0.90-2.90) K/uL Valencia # (Auto) 2.20 H (0.00-0.90) K/UL Eos # (Auto) 0.00 (0.00-0.50) K/uL Baso # (Auto) 0.00 (0.00-0.30) K/uL Abs Immat Gran (auto) 0.00 (0.00-0.30) K/uL Imm/Tot Granulo (auto) 0.1 % Sodium 134 L (135-149) mmol/L Potassium 3.6 (3.6-5.1) mmol/L Chloride 99 (96-114) mmol/L Carbon Dioxide 26 (20-32) mmol/L Anion Gap 9 (7-15) mEq/L BUN 11 (7-30) mg/dL Creatinine 1.0 (0.5-1.5) mg/dL Estimated GFR 88 ml/min Glucose 150 H (60-115) mg/dL Hemoglobin A1c 5.6 (0-5.6) % Calcium 9.0 (8.4-10.6) mg/dL Magnesium 1.6 (1.5-2.6) mg/dL Total Bilirubin 1.2 (0.1-1.5) mg/dL Direct Bilirubin 0.3 (0.0-0.5) mg/dL AST 28 (12-35) U/L ALT 23 (4-50) U/L Alkaline Phosphatase 71 (40-150) U/L C-Reactive Protein 12.4 H (0.5-1.0) mg/dL Total Protein 7.8 (6.0-8.3) g/dL Albumin 4.2 (3.3-5.0) g/dL SARS-CoV-2 (PCR) Negative SARS-CoV-2 (Negative) Influenza Type A (PCR) Negative PCR FLU A (Negative) Influenza Type B (PCR) Negative PCR FLU B (Negative) RSV (PCR) Negative PCR RSV (Negative) Lab Acknowledgement Test Added Imaging Data CT scan - abdomen: Radiologist's impression: Findings compatible with acute sigmoid colonic diverticulitis with tiny foci of extraluminal gas noted in vicinity of inflamed diverticula, indicative of focal perforation. Surrounding phlegmonous changes are evident without well-delineated fluid collection/abscess appreciated at this time. Discharge Plan Discharge Clinical Impression: Diverticulitis Patient Disposition: Admitted As Observation Discharge Location: [facility] Condition: Improved Activity Level: No Restrictions Discharge Diet: Low Fiber
[2025-01-13 18:14] LABS: Hematocrit* 44.7 % (37.0-53.0); Hemoglobin* 15.2 gm/dL (13.5-17.5); Immature Granulocytes Pct Auto 0.1 %; Mean Corpuscular HGB Conc 34 gm/dL (32-36); Mean Corpuscular Hemoglobin 30 pg (26-34); Mean Corpuscular Volume 89 fL (80-100); RDW Coefficient of Variation % 12.7 % (11.5-15.5); Red Blood Count* 5.05 m/uL (4.30-5.90); White Blood Count* 17.25 K/uL (4.50-11.00)
[2025-01-13 18:19] LABS: Immature Granulocytes Abs Auto 0.00 K/uL (0.00-0.30); Lymphocytes Absolute Auto 0.90 K/uL (0.90-2.90); Slide Review Reflex No
[2025-01-13 18:20] LABS: PCR FLU A Negative PCR FLU A (Negative); PCR FLU B Negative PCR FLU B (Negative); PCR RSV Negative PCR RSV (Negative); SARS PCR* Negative SARS-CoV-2 (Negative)
[2025-01-13 18:30] LABS: Chloride* 99 mmol/L (96-114); Potassium* 3.6 mmol/L (3.6-5.1); Sodium* 134 mmol/L (135-149)
[2025-01-13 18:33] LABS: Blood Urea Nitrogen* 11 mg/dL (7-30); Creatinine* 1.0 mg/dL (0.5-1.5); Estimated Glomerular Filt Rate 88 ml/min
[2025-01-13 18:34] LABS: Anion Gap 9 mEq/L (7-15); Calcium* 9.0 mg/dL (8.4-10.6); Carbon Dioxide* 26 mmol/L (20-32); Glucose* 150 mg/dL (60-115)
[2025-01-13] MEDS: PIPERACILLIN/TAZOBACTAM 3.375 GM in 0.9 % SODIUM CHLORIDE Mini-bag 100 ML IVPB (19:26)
[2025-01-13 19:28] VITALS: BP 138/73; PULSE 86; RESP 16; O2SAT 94
[2025-01-13 20:35] VITALS: BP 140/75; PULSE 89; RESP 15; TEMP 37.3; O2SAT 96; BMI 37.5
--- NOTE | 2025-01-13 20:37 | PM.IMHP1 ---
Assessment and Plan Assessment and plan (1) Acute diverticulitis: Problem comment: -Zosyn monotherapy. -fluids, cautious with p.o. intake -monitor for worsening perforation Status: Acute (2) Perforation of sigmoid colon due to diverticulitis: Problem comment: as in #1 Status: Acute (3) Hyperglycemia: Problem comment: -A1C was normal in 2023; strong family hx -glucose (fasting) was 150 today. checking A1C and bedside blood glucose. Status: Acute (4) Hypertension: Status: Acute (5) VASQUEZ (generalized anxiety disorder): Status: Acute (6) Hyperlipidemia: Status: Acute (7) Obesity (BMI 35.0-39.9 without comorbidity): Status: Acute (8) Erectile dysfunction: Status: Acute (9) Chronic cough: Problem comment: pt thinks 2/2 his ACEI Status: Acute Hospitalist- H&P: HPI History of Present Illness Date Seen: 01/13/25 Chief complaint: Pain of Left side Narrative: ADMISSION HISTORY AND PHYSICAL - HOSPITALIST Chief Complaint: Left lower quadrant abdominal pain, known history of diverticulitis HPI: 54-year-old Chadd, goes by Wolf, was in his usual state of health until 2 days prior to admission. He relates a burning bloating feeling in his left lower quadrant. He states he has had diverticulitis before and suspected this was happening again. He relates loss of appetite, generalized malaise and fatigue. He is passing gas and stool. Reports minimal emesis. No fever. No chills. He presents to the ED after 48 hours of the symptoms. In 2000 he had a severe presentation of diverticulitis with surgically emergent perforation. He then had a small bowel obstruction in 2018 that required surgical intervention. He has also had a lap cholecystectomy in 2016. ER COURSE: Labs, CT scan. Zosyn. General surgery consult. CODE STATUS: FULL CODE PCP: Marvin Kessler M.D. EMERGENCY CONTACT PLAN: BROTHER DOUG, . I've updated the PFSH, medications and allergies in the Expanse tabs. INVESTIGATIONS: LABS/MICRO/ECG/IMAGING Blood pressure 140/75. Pulse 89. Respirations 15. Temp 99.2?. O2 sat are 96% on room air. 122 kilos. White count is 17.25 Hemoglobin 15.2 Platelets 204 K Chemistries are unremarkable Respiratory swab is negative CT abdomen pelvis IMPRESSION: 1. Findings compatible with acute sigmoid colonic diverticulitis with tiny foci of extraluminal gas noted in vicinity of inflamed diverticula, indicative of focal perforation. Surrounding phlegmonous changes are evident without well-delineated fluid collection/abscess appreciated at this time. REVIEW OF SYSTEMS: 12-point ROS completed with patient and negative unless otherwise stated in HPI or below. PHYSICAL EXAM: CONSTITUTIONAL: Conversive, good historian. A/O. Knows setting and context. GENERAL: Well-developed and above ideal body weight, in no respiratory distress. VITAL SIGNS: see record. HEENT: Sclerae are anicteric. No petechiae. CARDIAC: rhythm is regular. There is no S3 or rub. No harsh murmurs. Extremities show trace edema with symmetrical pulses. ABDOMEN: Obese. No rebound. Tender in the left lower quadrant as expected. PULM: good air entry with no wheeze. NEURO: Speech is fluent. A brief neurologic exam is negative. SKIN: No rashes, petechiae, concerning changes PSYCHIATRIC: Euthymic. [facility] DVT: Lovenox GI: PO intake, ppi Time spent: Today I spent 75 minutes seeing the patient, discussing the patient with ER staff, reviewing Expanse and EPIC notes/diagnostics, discussing the care plan with our care time that includes social work, PT/OT, pharmacy, RT, fci and documenting my impressions and plan in the medical record. MEDICAL NECESSITY FOR HOSPITALIZATION Anticipated midnights in the hospital: 2 Admitting diagnosis: Acute sigmoid diverticulitis with micro perforation Risk of morbidity and mortality: high Acuity is characterized as high and reflected in: Duration of symptoms, previous surgical interventions and current perforation. This patient will require hospital services as outlined in the assessment and plan in order to stabilize and be safely discharged to a lower level of care. Because of the risk and acuity as described above, this patient cannot be managed at a lower level of care. LENGTH OF STAY: 2 IP ? Anticipated LOS>2 midnights due to acuity of clinical presentation requiring inpatient level of care [facility] Surgical History (Updated 01/13/25 @ 21:48 by Radha Hugo MD) Status post colectomy ?Z90.49 - Acquired absence of other specified parts of digestive tract (ICD-10) History of resection of small bowel (08/03/17) ?Z90.49 - Acquired absence of other specified parts of digestive tract (ICD-10) S/P herniorrhaphy (04/23/15) ?Z98.890 - Other specified postprocedural states (ICD-10) ?Z87.19 - Personal history of other diseases of the digestive system (ICD-10) Hx laparoscopic cholecystectomy (04/23/15) ?Z90.49 - Acquired absence of other specified parts of digestive tract (ICD-10) History of knee surgery ?Z98.890 - Other specified postprocedural states (ICD-10) History of shoulder surgery ?Z98.890 - Other specified postprocedural states (ICD-10) History of appendectomy ?Z90.49 - Acquired absence of other specified parts of digestive tract (ICD-10) Family History (Updated 05/29/22 @ 12:34 by Roberta Calero ~ [facility], [facility]) Mother High blood pressure Diabetes Psychiatric disorder Social History What is your current living situation?: I presently have a place to live Problems where you live: no known problems Problems where you live details: n/a In the past 12 months, utilities in danger of being shut off: no In past 12 months, lack of transportation kept you from medical appts, meetings, work, or getting things needed for daily living: no In the past 12 mos, have been you worried that your food would run out before you had money to buy more?: never true In the past 12 mos, the food you bought just didn't last and you didn't have money to buy more?: never true Highest level of school completed/degree received: high school graduate Smoking Status: Never smoker Do you use any of these nicotine containing products: None Second hand tobacco smoke exposure: No How often do you have a drink containing alcohol: never AUDIT-C Alcohol total score: 0 Non-prescribed substance use: marijuana (any form) Caffeine: No How often does anyone, including family, friends and others, physically hurt you: never How often does anyone, including family, friends and others, insult or talk down to you: never How often does anyone, including family, friends and others, threaten you with harm: never How often does anyone, including family, friends and others, scream or curse at you: never service: No Meds Home Medications and Allergies Home Medications ?Medication ?Instructions ?Recorded ?Confirmed ?Type buspirone 30 mg tablet 30 mg PO DAILY 06/02/22 01/13/25 History escitalopram oxalate 10 mg tablet 10 mg PO DAILY 06/02/22 01/13/25 History meclizine 25 mg tablet 25 mg PO PRN 06/02/22 06/12/22 History sildenafil (pulm.hypertension) 20 20 mg PO 06/02/22 06/12/22 History mg tablet lisinopril 10 mg tablet 10 mg PO DAILY 01/13/25 01/13/25 History rosuvastatin 10 mg tablet 10 mg PO QPM 01/13/25 01/13/25 History rosuvastatin 20 mg tablet 20 mg PO QPM 01/13/25 01/13/25 History Allergies Allergy/AdvReac Type Severity Reaction Status Date / Time No Known Drug Allergies Allergy Verified 01/13/25 17:32 Exam Const: Vital Signs, click to edit/add: Vital Signs - 24 hr 01/13/25 17:29 01/13/25 19:28 Temperature 96 F L Pulse Rate [Pulse Oximeter] 103 H 86 Respiratory Rate 24 16 Blood Pressure [Ri ght Upper Arm] 142/85 H 138/73 Pulse Oximetry 93 94 Oxygen Delivery Me thod Room Air Room Air Hospitalist - H&P: Result Labs Labs: Short CBC 01/13/25 Range/Units 18:06 WBC 17.25 H (4.50-11.00) K/uL Hgb 15.2 (13.5-17.5) gm/dL Hct 44.7 (37.0-53.0) % Plt Count 204 (140-440) K/uL [facility] 01/13/25 18:06 Sodium 134 L Potassium 3.6 Chloride 99 Carbon Dioxide 26 BUN 11 Creatinine 1.0 Glucose 150 H Calcium 9.0
[2025-01-13 20:51] VITALS: BP 140/75; PULSE 84; RESP 15; TEMP 37.3; O2SAT 96
[2025-01-13 21:12] LABS: Albumin* 4.2 g/dL (3.3-5.0)
[2025-01-13 21:15] LABS: Alanine Aminotransferase* 23 U/L (4-50); Alkaline Phosphatase* 71 U/L (40-150); Aspartate Amino Transferase* 28 U/L (12-35); Bilirubin Direct* 0.3 mg/dL (0.0-0.5); Bilirubin Total* 1.2 mg/dL (0.1-1.5); Total Protein* 7.8 g/dL (6.0-8.3)
[2025-01-13] MEDS: PANTOPRAZOLE SODIUM 40 MG INJ IVP (21:17)
[2025-01-13] MEDS: LACTATED RINGERS 1000 ML 1,000 ML 75 ML IV (21:18)
[2025-01-13] MEDS: ENOXAPARIN 40 MG/0.4 ML INJ SUBCUT (21:51)
[2025-01-13] MEDS: LACTATED RINGERS 500 ML 500 ML IV (21:52)
[2025-01-13 22:54] VITALS: BP 132/74; PULSE 75; RESP 14; TEMP 37.3; O2SAT 96
[2025-01-14] MEDS: PIPERACILLIN/TAZOBACTAM 3.375 GM in 0.9 % SODIUM CHLORIDE Mini-bag 100 ML IVPB ×4 (02:41→20:07)
[2025-01-14] MEDS: LACTATED RINGERS 1000 ML 1,000 ML 75 ML IV (02:54)
[2025-01-14 06:54] LABS: Hematocrit* 40.9 % (37.0-53.0); Hemoglobin* 13.8 gm/dL (13.5-17.5); Immature Granulocytes Pct Auto 0.3 %; Mean Corpuscular HGB Conc 34 gm/dL (32-36); Mean Corpuscular Hemoglobin 30 pg (26-34); Mean Corpuscular Volume 89 fL (80-100); RDW Coefficient of Variation % 13.0 % (11.5-15.5); Red Blood Count* 4.59 m/uL (4.30-5.90); White Blood Count* 16.26 K/uL (4.50-11.00)
[2025-01-14 06:58] LABS: Immature Granulocytes Abs Auto 0.00 K/uL (0.00-0.30); Lymphocytes Absolute Auto 1.30 K/uL (0.90-2.90)
[2025-01-14 06:59] LABS: Slide Review Reflex No
[2025-01-14 07:16] LABS: Chloride* 101 mmol/L (96-114)
[2025-01-14 07:17] LABS: Potassium* 3.4 mmol/L (3.6-5.1); Sodium* 135 mmol/L (135-149)
[2025-01-14 07:19] LABS: Blood Urea Nitrogen* 14 mg/dL (7-30); Creatinine* 1.2 mg/dL (0.5-1.5); Est. Creatinine Clearance* 73.21; Estimated Glomerular Filt Rate 71 ml/min
[2025-01-14 07:20] LABS: Anion Gap 8 mEq/L (7-15); Calcium* 8.4 mg/dL (8.4-10.6); Carbon Dioxide* 26 mmol/L (20-32); Glucose* 109 mg/dL (60-115)
[2025-01-14 08:08] VITALS: BP 138/79; PULSE 90; RESP 20; TEMP 37.2; O2SAT 95
[2025-01-14] MEDS: LACTATED RINGERS 1000 ML 1,000 ML 130 ML IV ×2 (08:10→18:20)
[2025-01-14] MEDS: BUSPIRONE 10 MG TABLET 30 MG PO (08:12)
[2025-01-14] MEDS: SODIUM CHLORIDE 0.9 % (FLUSH) 10 ML SYRINGE 5 ML IVF (08:30)
[2025-01-14 09:23] VITALS: TEMP 37.1
--- NOTE | 2025-01-14 10:07 | PM.IMPN1 ---
Assessment and Plan Assessment and plan (1) Acute diverticulitis: Problem comment: -Zosyn monotherapy. -fluids, cautious with p.o. intake -monitor for worsening perforation - 01/14 white count slightly improved, low-grade fever overnight (99F), persistent left lower quadrant pain. Mild improvement overnight. NPO until seen by General surgery later today. Creatinine has increased slightly; I think he is slightly volume depleted for which I will give an IV fluid bolus and increase IV fluids to maintenance for his body weight. I spoke with Dr. Mchugh over messaging, and she will come see this patient in consultation later today. Due to his history perforated diverticulitis with emergent surgery about 20 years ago, this current perforation is more complicated, and so I will keep him on bowel rest and anticipate he will need at least 1-2 more midnights and longer term IV antibiotics. Status: Acute (2) Perforation of sigmoid colon due to diverticulitis: Problem comment: as in #1 Status: Acute (3) Hyperglycemia: Problem comment: -A1C was normal in 2023; strong family hx - 01/13 glucose (fasting) was 150 today. checking A1C and bedside blood glucose. - 01/14 hemoglobin A1c is 5.6%, which does not meet criteria for pre diabetes or diabetes mellitus. Status: Acute (4) Hypertension: Problem comment: Continue home lisinopril Status: Chronic (5) VASQUEZ (generalized anxiety disorder): Problem comment: Continue home buspirone and escitalopram Status: Chronic (6) Hyperlipidemia: Problem comment: Resume home rosuvastatin Status: Chronic (7) Obesity (BMI 35.0-39.9 without comorbidity): Status: Acute (8) Chronic cough: Problem comment: pt thinks 2/2 his ACEI Status: Acute Total Time Spent Total Time Spent: Today I spent 40 minutes seeing the patient, discussing with General surgery, reviewing Expanse and EPIC notes/diagnostics/labs, discussing the care plan with our care team that includes social work, PT/OT, pharmacy, RT, assisted and documenting my impressions and plan in the medical record. Subjective Time Seen by Provider: 07:37 Date Seen: 01/14/25 Interval history: Chadd said he didn't sleep well last night because he is a side sleeper and was having difficulty getting comfortable. He continues to have left lower quadrant pain. +flatus. He denies nausea or vomiting. He is thirsty. Exam Narrative: Exam Narrative: General: No acute distress. Awake, alert, oriented x3. No pallor. No jaundice. Frequent dry cough. Oropharynx: Clear. Mucous membranes slightly dry. Cardiovascular: Regular rate and rhythm. No murmurs, gallops, or rubs. Respiratory: Clear to auscultation bilaterally. No wheezes or crackles. Abdomen: Bowel sounds present. Soft, obese, tender in the left lower quadrant, no rebound tenderness or guarding. Extremities: No lower extremity edema. Skin: Warm, moist. Const: Vital Signs, click to edit/add: Vital Signs - 24 hr 01/13/25 17:29 01/13/25 19:28 01/13/25 20:35 Temperature 96 F L 99.2 F Pulse Rate [Pulse Oximeter] 103 H 86 Pulse Rate [Right Pulse Oximeter] 89 Respiratory Rate 24 16 15 Blood Pressure [Ri ght Arm] 140/75 H Blood Pressure [Ri ght Upper Arm] 142/85 H 138/73 Pulse Oximetry 93 94 96 Oxygen Delivery Me thod Room Air Room Air Room Air 01/13/25 20:35 01/13/25 20:51 01/13/25 22:54 Temperature 99.2 F 99.1 F Pulse Rate [Pulse Oximeter] Pulse Rate [Right Pulse Oximeter] 84 75 Respiratory Rate 15 14 Blood Pressure [Ri ght Arm] 140/75 H 132/74 Blood Pressure [Ri ght Upper Arm] Pulse Oximetry 96 96 Oxygen Delivery Me thod Room Air Room Air Room Air 01/14/25 08:08 01/14/25 09:23 Temperature 99.0 F 98.7 F Pulse Rate [Pulse Oximeter] Pulse Rate [Right Pulse Oximeter] 90 Respiratory Rate 20 Blood Pressure [Ri ght Arm] 138/79 Blood Pressure [Ri ght Upper Arm] Pulse Oximetry 95 Oxygen Delivery Me thod Room Air Labs Labs: Laboratory Results - last 24 hr 01/13/25 01/13/25 01/13/25 17:34 18:06 20:51 WBC 17.25 H RBC 5.05 Hgb 15.2 Hct 44.7 MCV 89 MCH 30 MCHC 34 RDW Coeff of Govind 12.7 Plt Count 204 Neut % (Auto) 81.4 H Lymph % (Auto) 5.3 L [place] % (Auto) 12.9 H Eos % (Auto) 0.1 Baso % (Auto) 0.2 Neut # (Auto) 14.00 H Lymph # (Auto) 0.90 [place] # (Auto) 2.20 H Eos # (Auto) 0.00 Baso # (Auto) 0.00 Abs Immat Gran (auto) 0.00 Imm/Tot Granulo (auto) 0.1 Sodium 134 L Potassium 3.6 Chloride 99 Carbon Dioxide 26 Anion Gap 9 BUN 11 Creatinine 1.0 Estimated Creat Clear Estimated GFR 88 Glucose 150 H Hemoglobin A1c 5.6 Calcium 9.0 Magnesium 1.6 Total Bilirubin 1.2 Direct Bilirubin 0.3 AST 28 ALT 23 Alkaline Phosphatase 71 C-Reactive Protein 12.4 H Total Protein 7.8 Albumin 4.2 SARS-CoV-2 (PCR) Negative SARS-CoV-2 Influenza Type A (PCR) Negative PCR FLU A Influenza Type B (PCR) Negative PCR FLU B RSV (PCR) Negative PCR RSV Lab Acknowledgement Test Added 01/13/25 01/14/25 21:39 06:12 WBC 16.26 H RBC 4.59 Hgb 13.8 Hct 40.9 MCV 89 MCH 30 MCHC 34 RDW Coeff of Govind 13.0 Plt Count 183 Neut % (Auto) 79.0 H Lymph % (Auto) 7.8 L [place] % (Auto) 12.7 H Eos % (Auto) 0.1 Baso % (Auto) 0.1 Neut # (Auto) 12.80 H Lymph # (Auto) 1.30 [place] # (Auto) 2.10 H Eos # (Auto) 0.00 Baso # (Auto) 0.00 Abs Immat Gran (auto) 0.00 Imm/Tot Granulo (auto) 0.3 Sodium 135 Potassium 3.4 L Chloride 101 Carbon Dioxide 26 Anion Gap 8 BUN 14 Creatinine 1.2 Estimated Creat Clear 73.21 Estimated GFR 71 Glucose 109 Hemoglobin A1c Calcium 8.4 Magnesium Total Bilirubin Direct Bilirubin AST ALT Alkaline Phosphatase C-Reactive Protein 15.3 H Total Protein Albumin SARS-CoV-2 (PCR) Influenza Type A (PCR) Influenza Type B (PCR) RSV (PCR) Lab Acknowledgement Test Added
[2025-01-14] MEDS: LACTATED RINGERS 500 ML 500 ML IV (10:50)
[2025-01-14 11:00] VITALS: BP 115/68; PULSE 80; RESP 16; TEMP 37.2; O2SAT 91
[2025-01-14] MEDS: POTASSIUM CHLORIDE 10 MEQ/100 ML PIGGYBACK 100 MEQ IVPB (11:56)
--- NOTE | 2025-01-14 14:32 | PC.NURSE ---
Pt is pleasant to care for. VSS. Reports having pain in the abdomen only when he coughs. Pt has not requested PRN medication this shift. Pt is ambulating in room independently. He has been laying in bed all day. Uses call light appropriately. Resting well at this time.
--- NOTE | 2025-01-14 14:45 | PM.GSCN ---
History of Present Illness Consult details Date Seen: 01/14/25 Consult date: 01/14/25 Narrative: The patient is a 54-year-old male who presented to the emergency department last evening with severe lower abdominal pain. He states that he developed discomfort in his abdomen on which is 4 days ago. He states that he has had small bouts like this in the past few months but they went away within a day. These symptoms persisted for several days and since they did not go away he came in to be seen. He has not had any fevers. He did have nausea and vomiting yesterday after brushing his teeth, however he states he had drinking lemonade and thinks that this is why he vomited. He also has had diarrhea for several days. No blood in his stools. Denies any urinary symptoms. His history is remarkable for sigmoid resection for diverticulitis 24 years ago. He states that he presented with diverticulitis and they try to manage this conservatively. He was in the hospital for what sounds like a couple of weeks. He then developed an abscess and then the following month underwent sigmoid resection as well as 2 small bowel resections. This was in [facility]. He had not had any issues but then was hospitalized for small-bowel obstruction in 2018. 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 He was noted to have significant intra-abdominal adhesions at the time. Of note, he did previously undergo laparoscopic cholecystectomy without difficulty however. Since then he had done well except for the past few months. He states that he has bowel movements every day but there were variable in consistency. He does not take a fiber supplement. He had a colonoscopy last year and was found to have 3 small tubular adenomas. He has no family history of colon cancer. [facility] Surgical History (Updated 01/14/25 @ 15:22 by Audrey Mchugh MD) Status post colectomy ?Z90.49 - Acquired absence of other specified parts of digestive tract (ICD-10) History of resection of small bowel (08/03/17) ?Z90.49 - Acquired absence of other specified parts of digestive tract (ICD-10) S/P herniorrhaphy (04/23/15) ?Z98.890 - Other specified postprocedural states (ICD-10) ?Z87.19 - Personal history of other diseases of the digestive system (ICD-10) Hx laparoscopic cholecystectomy (04/23/15) ?Z90.49 - Acquired absence of other specified parts of digestive tract (ICD-10) History of knee surgery ?Z98.890 - Other specified postprocedural states (ICD-10) History of shoulder surgery ?Z98.890 - Other specified postprocedural states (ICD-10) History of appendectomy ?Z90.49 - Acquired absence of other specified parts of digestive tract (ICD-10) Family History (Updated 01/14/25 @ 15:20 by Audrey Mchugh MD) Mother High blood pressure Diabetes Psychiatric disorder Social History Narrative: He works in sales and as a physicians assistant. He does not smoke. Rare alcohol. What is your current living situation?: I presently have a place to live Problems where you live: no known problems Problems where you live details: n/a In the past 12 months, utilities in danger of being shut off: no In past 12 months, lack of transportation kept you from medical appts, meetings, work, or getting things needed for daily living: no In the past 12 mos, have been you worried that your food would run out before you had money to buy more?: never true In the past 12 mos, the food you bought just didn't last and you didn't have money to buy more?: never true Highest level of school completed/degree received: high school graduate Smoking Status: Never smoker Do you use any of these nicotine containing products: None Second hand tobacco smoke exposure: No How often do you have a drink containing alcohol: never AUDIT-C Alcohol total score: 0 Non-prescribed substance use: marijuana (any form) Caffeine: No How often does anyone, including family, friends and others, physically hurt you: never How often does anyone, including family, friends and others, insult or talk down to you: never How often does anyone, including family, friends and others, threaten you with harm: never How often does anyone, including family, friends and others, scream or curse at you: never service: No Meds Home Medications and Allergies Home Medications ?Medication ?Instructions ?Recorded ?Confirmed ?Type escitalopram oxalate 10 mg tablet 10 mg PO DAILY 06/02/22 01/13/25 History sildenafil (pulm.hypertension) 20 20 mg PO 06/02/22 06/12/22 History mg tablet lisinopril 10 mg tablet 10 mg PO DAILY 01/13/25 01/13/25 History rosuvastatin 20 mg tablet 20 mg PO QPM 01/13/25 01/13/25 History buspirone 30 mg tablet 30 mg PO BID 01/14/25 01/14/25 History Allergies Allergy/AdvReac Type Severity Reaction Status Date / Time No Known Drug Allergies Allergy Verified 01/13/25 17:32 Exam Narrative: Exam Narrative: General appearance: Alert, cooperative, and in no distress Eyes: PERRLA, eye lids clear, and sclera white HENT Head: Normocephalic Ears: External ears normal Pulmonary: Breathing nonlabored on room air Cardiovascular Heart: Regular rate Extremities: warm and well perfused Gastrointestinal Abdominal: mildly protuberant. Midline incision noted. Patient is tender in the left lateral/ lower abdomen without guarding or rebound. Skin: Normal skin color, texture, and turgor. Neurologic: No focal deficits Psychiatric: Alert, oriented, cooperative, normal affect. Const: Vital Signs, click to edit/add: Vital Signs - 24 hr 01/13/25 17:29 01/13/25 19:28 01/13/25 20:35 Temperature 96 F L 99.2 F Pulse Rate [Pulse Oximeter] 103 H 86 Pulse Rate [Right Pulse Oximeter] 89 Respiratory Rate 24 16 15 Blood Pressure [Ri ght Arm] 140/75 H Blood Pressure [Ri ght Upper Arm] 142/85 H 138/73 Pulse Oximetry 93 94 96 Oxygen Delivery Me thod Room Air Room Air Room Air 01/13/25 20:35 01/13/25 20:51 01/13/25 22:54 Temperature 99.2 F 99.1 F Pulse Rate [Pulse Oximeter] Pulse Rate [Right Pulse Oximeter] 84 75 Respiratory Rate 15 14 Blood Pressure [Ri ght Arm] 140/75 H 132/74 Blood Pressure [Ri ght Upper Arm] Pulse Oximetry 96 96 Oxygen Delivery Mi thod Room Air Room Air Room Air 01/14/25 08:08 01/14/25 09:23 01/14/25 11:00 Temperature 99.0 F 98.7 F 98.9 F Pulse Rate [Pulse Oximeter] Pulse Rate [Right Pulse Oximeter] 90 80 Respiratory Rate 20 16 Blood Pressure [Ri ght Arm] 138/79 115/68 Blood Pressure [Ri ght Upper Arm] Pulse Oximetry 95 91 Oxygen Delivery Me thod Room Air Room Air Results Labs Labs: White blood cell count on admission 17, 12 hours later was 16 CRP on admission was 12.4, 12 hours later 15.[address] scan report/results: report reviewed and image reviewed Additional studies: CT abdomen/pelvis: IMPRESSION: 1. Findings compatible with acute sigmoid colonic diverticulitis with tiny foci of extraluminal gas noted in vicinity of inflamed diverticula, indicative of focal perforation. Surrounding phlegmonous changes are evident without well-delineated fluid collection/abscess appreciated at this time. Dictated by Mendez Lau MD @ 01/13/2025 6:55:57 PM Progress Note:A&P Assessment and plan (1) Acute diverticulitis: Status: Acute Plan The patient is a 54-year-old male with perforated diverticulitis in the setting of prior sigmoidectomy for diverticulitis 20 years ago. We discussed the management of diverticulitis as well as the indications for emergency surgery and ostomy. Currently clinically he does seem to be improved. I did recommend he stay an additional day to get at least 24 hours of IV antibiotics prior to considering discharge. Since his pain is improved I think it is okay for him to have cautious clear liquids. I recommend that if tomorrow he is clinically improved he could potentially discharge home with outpatient IV antibiotics for total 7-10 days, depending on his clinical course. He understands that if he completely resolves that no further management may be necessary, however if he continues to have symptoms as he is describing, he may need to undergo colon resection a 2nd time. For this reason, I think it would be reasonable for him to follow up with Colorectal surgery as an outpatient, this is because as his 2nd resection, it will be more complicated. We discussed that after discharge I would recommend a low residue bland diet until the symptoms completely resolved. he is agreeable this plan. Will follow-up tomorrow.
[2025-01-14 15:00] VITALS: BP 137/78; PULSE 77; RESP 16; TEMP 36.5; O2SAT 97
[2025-01-14] MEDS: ROSUVASTATIN CALCIUM 10 MG TABLET 20 MG PO (18:24)
[2025-01-14 18:27] VITALS: PULSE 73; RESP 16; TEMP 36.4; O2SAT 97
[2025-01-14] MEDS: ENOXAPARIN 40 MG/0.4 ML INJ SUBCUT (20:45)
--- NOTE | 2025-01-14 23:28 | PC.NURSE ---
Wolf is tolerating a clear liquid diet, he has LR @ 130 in Right A/C PIV. He is utilizing scheduled medications for pain and has received antibiotics as ordered.
[2025-01-15] VITALS (7 sets, daily range): BP systolic 126–147; BP diastolic 74–89; PULSE 65–82; RESP 17–22; TEMP 36.5–37.4; O2SAT 95–98
[2025-01-15] MEDS: LACTATED RINGERS 1000 ML 1,000 ML 130 ML IV ×2 (00:16→10:07)
[2025-01-15] MEDS: PIPERACILLIN/TAZOBACTAM 3.375 GM in 0.9 % SODIUM CHLORIDE Mini-bag 100 ML IVPB ×4 (03:08→22:50)
[2025-01-15 06:11] LABS: Hematocrit* 37.5 % (37.0-53.0); Hemoglobin* 12.7 gm/dL (13.5-17.5); Immature Granulocytes Abs Auto 0.03 K/uL (0.00-0.30); Immature Granulocytes Pct Auto 0.3 %; Mean Corpuscular HGB Conc 34 gm/dL (32-36); Mean Corpuscular Hemoglobin 30 pg (26-34); Mean Corpuscular Volume 90 fL (80-100); RDW Coefficient of Variation % 12.8 % (11.5-15.5); Red Blood Count* 4.18 m/uL (4.30-5.90); White Blood Count* 10.59 K/uL (4.50-11.00)
[2025-01-15 06:13] LABS: Lymphocytes Absolute Auto 1.10 K/uL (0.90-2.90); Slide Review Reflex No
[2025-01-15 06:24] LABS: Chloride* 103 mmol/L (96-114); Potassium* 3.6 mmol/L (3.6-5.1); Sodium* 136 mmol/L (135-149)
[2025-01-15 06:27] LABS: Anion Gap 4 mEq/L (7-15); Blood Urea Nitrogen* 13 mg/dL (7-30); Carbon Dioxide* 29 mmol/L (20-32); Creatinine* 1.0 mg/dL (0.5-1.5); Est. Creatinine Clearance* 87.85; Estimated Glomerular Filt Rate 88 ml/min
[2025-01-15 06:28] LABS: Calcium* 8.3 mg/dL (8.4-10.6); Glucose* 102 mg/dL (60-115)
--- NOTE | 2025-01-15 07:50 | CRLHL7_ITS ---
For Patients: As a result of the Century Cures Act, medical imaging exams and procedure reports are released immediately into your electronic medical record. You may view this report before your referring provider. If you have questions, please contact your health care provider. INDICATION: Cough COMPARISON: None TECHNIQUE: PA and lateral views of the chest were acquired FINDINGS: TUBES AND LINES: None. HEART AND MEDIASTINUM: The heart size is normal. The mediastinal contour appears normal for patient age. LUNGS AND PLEURAL SPACES: Minimal opacity at the left lung base favor atelectasis however aspiration or pneumonia.The pleural spaces are unremarkable. OSSEOUS STRUCTURES: Postoperative changes at the left shoulder joint IMPRESSION: Minimal opacity at the left base favor atelectasis over aspiration or pneumonia. Dictated by Lisandro Barry MD @ 01/15/2025 8:56:00 AM (Electronically Signed)
--- NOTE | 2025-01-15 08:04 | PC.NURSE ---
Shift note ([id number]): Patient pleasant, alert and oriented. Ambulated independently in room. Reports having gas and a BM this shift. Reported have pain rated 3/10 on left side?when coughing; otherwise denied pain. ?
[2025-01-15] MEDS: ESCITALOPRAM 10 MG TABLET PO (08:31)
[2025-01-15] MEDS: BUSPIRONE 10 MG TABLET 30 MG PO (08:31)
[2025-01-15] MEDS: SODIUM CHLORIDE 0.9 % (FLUSH) 10 ML SYRINGE 5 ML IVF ×2 (08:35→22:54)
--- NOTE | 2025-01-15 10:27 | PM.IMPN1 ---
Assessment and Plan Assessment and plan (1) Acute diverticulitis: Problem comment: -Zosyn monotherapy. -fluids, cautious with p.o. intake -monitor for worsening perforation - 01/14 white count slightly improved, low-grade fever overnight (99F), persistent left lower quadrant pain. Mild improvement overnight. NPO until seen by General surgery later today. Creatinine has increased slightly; I think he is slightly volume depleted for which I will give an IV fluid bolus and increase IV fluids to maintenance for his body weight. I spoke with Dr. Mchugh over messaging, and she will come see this patient in consultation later today. Due to his history perforated diverticulitis with emergent surgery about 20 years ago, this current perforation is more complicated, and so I will keep him on bowel rest and anticipate he will need at least 1-2 more midnights and longer term IV antibiotics. - 01/[address] Mchugh. WBC much improved. Slight temp increase this morning yet with persistent pain. Advance to full liq diet today and get PICC. Continue Ertapenem for a total of 10 days IV. Stay in hospital yet today and reevaluate tomorrow. Status: Acute (2) Perforation of sigmoid colon due to diverticulitis: Problem comment: as in #1 Status: Acute (3) Hyperglycemia: Problem comment: -A1C was normal in 2023; strong family hx - 01/13 glucose (fasting) was 150 today. checking A1C and bedside blood glucose. - 01/14 hemoglobin A1c is 5.6%, which does not meet criteria for pre diabetes or diabetes mellitus. Status: Acute (4) Hypertension: Problem comment: Continue home lisinopril Status: Chronic (5) VASQUEZ (generalized anxiety disorder): Problem comment: Continue home buspirone and escitalopram Status: Chronic (6) Hyperlipidemia: Problem comment: Resume home rosuvastatin Status: Chronic (7) Obesity (BMI 35.0-39.9 without comorbidity): Status: Acute (8) Chronic cough: Problem comment: pt thinks 2/2 his ACEI - CXR shows atelectasis. Continue incentive spirometry. Encourage sitting up in a chair and ambulation. Status: Acute Total Time Spent Total Time Spent: Today I spent 45 minutes seeing the patient, discussing with General surgery, reviewing Expanse and EPIC notes/diagnostics/labs, discussing the care plan with our care team that includes social work, PT/OT, pharmacy, RT, residential and documenting my impressions and plan in the medical record. Subjective Time Seen by Provider: 07:42 Date Seen: 01/15/25 Interval history: Wolf feels less pain at rest, but still notes pain in LLQ when he coughs or shifts in bed. Also, he is very aware of the pain when the pain medicine starts to wear off. He is hungry. We also discussed lisinopril and cough. Exam Narrative: Exam Narrative: General: No acute distress. Awake, alert, oriented x3. No pallor. No jaundice. Frequent dry cough. Oropharynx: Clear. Mucous membranes moist. Cardiovascular: Regular rate and rhythm. No murmurs, gallops, or rubs. Respiratory: Shallow inspiration. Clear to auscultation bilaterally. No wheezes or crackles. Abdomen: Bowel sounds present. Soft, obese, less tender in the left lower quadrant, no rebound tenderness or guarding. Extremities: No lower extremity edema. Skin: Warm, moist. Const: Vital Signs, click to edit/add: Vital Signs - 24 hr 01/14/25 11:00 01/14/25 15:00 01/14/25 15:00 Temperature 98.9 F 97.7 F Pulse Rate [Right Pulse Oximeter] 80 77 77 Respiratory Rate 16 16 16 Blood Pressure [Le ft Arm] Blood Pressure [Ri ght Arm] 115/68 137/78 Pulse Oximetry 91 97 Oxygen Delivery Me thod Room Air Room Air 01/14/25 18:27 01/15/25 00:43 01/15/25 03:14 Temperature 97.5 F L 97.9 F 99.4 F Pulse Rate [Right Pulse Oximeter] 73 78 81 Respiratory Rate 16 18 17 Blood Pressure [Le ft Arm] Blood Pressure [Ri ght Arm] 131/74 128/80 Pulse Oximetry 97 95 97 Oxygen Delivery Me thod Room Air Room Air Room Air 01/15/25 08:20 01/15/25 08:20 Temperature 98.3 F Pulse Rate [Right Pulse Oximeter] 73 73 Respiratory Rate 18 18 Blood Pressure [Le ft Arm] 147/85 H Blood Pressure [Ri ght Arm] Pulse Oximetry 95 Oxygen Delivery Me thod Room Air Labs Labs: Laboratory Results - last 24 hr 01/15/25 05:42 WBC 10.59 RBC 4.18 L Hgb 12.7 L Hct 37.5 MCV 90 MCH 30 MCHC 34 RDW Coeff of Govind 12.8 Plt Count 182 Neut % (Auto) 78.0 H Lymph % (Auto) 10.5 L [place] % (Auto) 10.1 Eos % (Auto) 0.8 Baso % (Auto) 0.3 Neut # (Auto) 8.30 H Lymph # (Auto) 1.10 [place] # (Auto) 1.10 H Eos # (Auto) 0.09 Baso # (Auto) 0.03 Abs Immat Gran (auto) 0.03 Imm/Tot Granulo (auto) 0.3 Sodium 136 Potassium 3.6 Chloride 103 Carbon Dioxide 29 Anion Gap 4 L BUN 13 Creatinine 1.0 Estimated Creat Clear 87.85 Estimated GFR 88 Glucose 102 Calcium 8.3 L C-Reactive Protein 15.4 H Ordering Physician: Mei Vieyra M.D. Date of Service: 01/15/25 Procedure(s): XR chest 2V Accession Number(s): [id number] cc: Mei Vieyra M.D.; Marvin Kessler M.D.~ For Patients: As a result of the Cures Act, medical imaging exams and procedure reports are released immediately into your electronic medical record. You may view this report before your referring provider. If you have questions, please contact your health care provider. INDICATION: Cough COMPARISON: None TECHNIQUE: PA and lateral views of the chest were acquired FINDINGS: TUBES AND LINES: None. HEART AND MEDIASTINUM: The heart size is normal. The mediastinal contour appears normal for patient age. LUNGS AND PLEURAL SPACES: Minimal opacity at the left lung base favor atelectasis however aspiration or pneumonia.The pleural spaces are unremarkable. OSSEOUS STRUCTURES: Postoperative changes at the left shoulder joint IMPRESSION: Minimal opacity at the left base favor atelectasis over aspiration or pneumonia. Dictated by Lisandro Barry MD @ 01/15/2025 8:56:00 AM (Electronically Signed)
--- NOTE | 2025-01-15 10:32 | PM.GSPN ---
Subjective Subjective Date Seen: 01/15/25 Interval history: Wolf is feeling better today but still does have some pain with coughing. He is still needing pain medication. He is still having loose bowel movements. He has no nausea. He would like to eat more possible. Temp up to 99 overnight. Exam Narrative: Exam Narrative: General: No acute distress CV: Regular rate respiratory: Breathing nonlabored on room air abdomen: Still remains tender in the left mid to lower abdomen with palpation. No guarding. Const: Vital Signs, click to edit/add: Vital Signs - 24 hr 01/14/25 11:00 01/14/25 15:00 01/14/25 15:00 Temperature 98.9 F 97.7 F Pulse Rate [Right Pulse Oximeter] 80 77 77 Respiratory Rate 16 16 16 Blood Pressure [Le ft Arm] Blood Pressure [Ri ght Arm] 115/68 137/78 Pulse Oximetry 91 97 Oxygen Delivery Me thod Room Air Room Air 01/14/25 18:27 01/15/25 00:43 01/15/25 03:14 Temperature 97.5 F L 97.9 F 99.4 F Pulse Rate [Right Pulse Oximeter] 73 78 81 Respiratory Rate 16 18 17 Blood Pressure [Le ft Arm] Blood Pressure [Ri ght Arm] 131/74 128/80 Pulse Oximetry 97 95 97 Oxygen Delivery Me thod Room Air Room Air Room Air 01/15/25 08:20 01/15/25 08:20 Temperature 98.3 F Pulse Rate [Right Pulse Oximeter] 73 73 Respiratory Rate 18 18 Blood Pressure [Le ft Arm] 147/85 H Blood Pressure [Ri ght Arm] Pulse Oximetry 95 Oxygen Delivery Me thod Room Air Labs/Imaging Labs Labs: White blood cell count today is down to 10 CRP remains at 15 Progress Note:A&P Assessment and plan (1) Acute diverticulitis: Status: Acute (2) Perforation of sigmoid colon due to diverticulitis: Status: Acute Plan The patient is a 54-year-old male who is status post sigmoidectomy for diverticulitis 20 years ago now with recurrent perforated diverticulitis. He is stable today to somewhat improved. Because he is still having pain, requiring pain medication, I do recommend that we advance diet very slowly. He could have full liquids today. - If he continues to improve overnight and his pain is improved he could discharge home tomorrow though I would recommend that he continue antibody and diet even as an outpatient until his pain is totally gone. - PICC line to be placed in anticipation of IV antibiotics for 10 days total. - Would recommend outpatient follow-up with Colorectal surgery though they may not plan any surgical intervention if he resolves this episode without any ongoing issues.
[2025-01-15] MEDS: ROSUVASTATIN CALCIUM 10 MG TABLET 20 MG PO (18:08)
--- NOTE | 2025-01-15 18:17 | PC.NURSE ---
End of Shift: Patient pleasant and cooperative. Patient vitally stable, lungs clear, BS WNL, IV SL and intact. Patient rates abdominal pain 2-3/10, only scheduled toradol given. Patient tolerating full liquid diet, urinating well, and had several loose stools. Patient is independent and has ambulated the falls. Patient naps on and off throughout the day. Blood sugars today were 120, 93, and 121.
[2025-01-15] MEDS: ENOXAPARIN 40 MG/0.4 ML INJ SUBCUT (22:52)
[2025-01-16 03:58] VITALS: BP 149/96; PULSE 70; RESP 18; TEMP 36.6; O2SAT 98
--- NOTE | 2025-01-16 05:04 | PC.NURSE ---
Shift note ([id number]): Patient pleasant, alert and oriented. Walking in hallways independently. Tolerating full liquid diet. IV to left AC was discontinued due to bleeding and longer patent New IV placed in right hand.?Denied pain.?
[2025-01-16] MEDS: PIPERACILLIN/TAZOBACTAM 3.375 GM in 0.9 % SODIUM CHLORIDE Mini-bag 100 ML IVPB (05:42)
[2025-01-16 06:27] LABS: Hematocrit* 35.7 % (37.0-53.0); Hemoglobin* 12.1 gm/dL (13.5-17.5); Immature Granulocytes Abs Auto 0.01 K/uL (0.00-0.30); Immature Granulocytes Pct Auto 0.1 %; Mean Corpuscular HGB Conc 34 gm/dL (32-36); Mean Corpuscular Hemoglobin 30 pg (26-34); Mean Corpuscular Volume 90 fL (80-100); RDW Coefficient of Variation % 12.8 % (11.5-15.5); Red Blood Count* 3.99 m/uL (4.30-5.90); White Blood Count* 6.76 K/uL (4.50-11.00)
[2025-01-16 06:30] LABS: Lymphocytes Absolute Auto 1.00 K/uL (0.90-2.90); Slide Review Reflex No
[2025-01-16 06:36] LABS: Chloride* 105 mmol/L (96-114)
[2025-01-16 06:37] LABS: Potassium* 3.7 mmol/L (3.6-5.1); Sodium* 139 mmol/L (135-149)
[2025-01-16 06:39] LABS: Blood Urea Nitrogen* 14 mg/dL (7-30); Creatinine* 1.0 mg/dL (0.5-1.5); Est. Creatinine Clearance* 87.85; Estimated Glomerular Filt Rate 88 ml/min
[2025-01-16 06:40] LABS: Anion Gap 6 mEq/L (7-15); Calcium* 8.8 mg/dL (8.4-10.6); Carbon Dioxide* 28 mmol/L (20-32); Glucose* 95 mg/dL (60-115)
[2025-01-16 07:00] VITALS: PULSE 70; RESP 18
[2025-01-16 08:00] VITALS: BP 128/72; PULSE 70; RESP 18; TEMP 36.8; O2SAT 96
--- NOTE | 2025-01-16 08:53 | PM.GSPN ---
Subjective Subjective Date Seen: 01/16/25 Interval history: Him feels better today. His pain is gone. Exam Narrative: Exam Narrative: General: No acute distress Abdomen: Soft, nontender to palpation, particularly on the left Const: Vital Signs, click to edit/add: Vital Signs - 24 hr 01/15/25 11:02 01/15/25 16:16 01/15/25 16:16 Temperature 97.9 F 97.9 F Pulse Rate [Right Pulse Oximeter] 65 66 66 Respiratory Rate 22 22 22 Blood Pressure [Le ft Arm] Blood Pressure [Ri ght Arm] 142/86 H 139/87 Pulse Oximetry 95 96 Oxygen Delivery Me thod Room Air Room Air 01/15/25 20:25 01/15/25 22:55 01/16/25 03:58 Temperature 97.7 F 98.0 F 97.8 F Pulse Rate [Right Pulse Oximeter] 82 66 70 Respiratory Rate 18 18 18 Blood Pressure [Le ft Arm] 142/89 H Blood Pressure [Ri ght Arm] 126/83 149/96 H Pulse Oximetry 98 98 98 Oxygen Delivery Me thod Room Air Room Air Room Air Labs/Imaging Labs Labs: White blood cell count normal CRP down to 8 Progress Note:A&P Assessment and plan (1) Acute diverticulitis: Status: Acute (2) Perforation of sigmoid colon due to diverticulitis: Status: Acute Plan Wolf is a 54-year-old male with perforated diverticulitis in the setting of prior sigmoid resection for diverticulitis. He is doing much better today. Okay to discharge patient home on a soft diet. We discussed continuing a soft low residue diet at least while he is on antibiotics. Will recommend a 10 day course as an outpatient. -he can follow-up in clinic next week -we will discuss next steps at that point. -he understands that if he develops worsening pain, fevers or any other concerning symptoms he needs to return to be re-evaluated.
[2025-01-16] MEDS: BUSPIRONE 10 MG TABLET 30 MG PO (09:33)
[2025-01-16] MEDS: SODIUM CHLORIDE 0.9 % (FLUSH) 10 ML SYRINGE 5 ML IVF (09:33)
[2025-01-16] MEDS: ESCITALOPRAM 10 MG TABLET PO (09:34)
[2025-01-16 11:27] VITALS: BP 143/90; PULSE 61; RESP 16; TEMP 36.7; O2SAT 95
[2025-01-16] MEDS: ERTAPENEM 1 GM in 0.9 % SODIUM CHLORIDE Mini-bag 100 ML IVPB (11:28)
--- NOTE | 2025-01-16 13:42 | PM.DS1 ---
DS: Providers Provider Time Seen by Provider: 08:16 Date Seen: 01/16/25 Date of admission: 01/13/25 20:57 Primary care physician: Marvin Kessler MD Admitting Clinician: Radha Hugo MD Consults: 01/13/25 20:51 Consult to Physician [CONS] Routine Comment: Consulting Provider: Audrey Mchugh Has provider been notified: Yes Attending Physician on discharge: Mei Vieyra MD Date of Discharge: 01/16/25 DS: Diagnosis Discharge Diagnosis (1) Acute diverticulitis: Status: Acute Problem details: -Zosyn monotherapy. -fluids, cautious with p.o. intake -monitor for worsening perforation - 01/14 white count slightly improved, low-grade fever overnight (99F), persistent left lower quadrant pain. Mild improvement overnight. NPO until seen by General surgery later today. Creatinine has increased slightly; I think he is slightly volume depleted for which I will give an IV fluid bolus and increase IV fluids to maintenance for his body weight. I spoke with Dr. Mchugh over messaging, and she will come see this patient in consultation later today. Due to his history perforated diverticulitis with emergent surgery about 20 years ago, this current perforation is more complicated, and so I will keep him on bowel rest and anticipate he will need at least 1-2 more midnights and longer term IV antibiotics. - 01/[address] Mchugh. WBC much improved. Slight temp increase this morning yet with persistent pain. Advance to full liq diet today and get PICC. Continue Ertapenem for a total of 10 days IV. Stay in hospital yet today and reevaluate tomorrow. - 01/16 Much improved. No elevated temps overnight. Switch to Ertapenem, 10 d antibiotics total (day 3 today, will need 7 more days). PICC line placement today. F/u with surgery as outpatient. (2) Perforation of sigmoid colon due to diverticulitis: Status: Acute Problem details: as in #1 (3) Hyperglycemia: Status: Acute Problem details: -A1C was normal in 2023; strong family hx - 01/13 glucose (fasting) was 150 today. checking A1C and bedside blood glucose. - 01/14 hemoglobin A1c is 5.6%, which does not meet criteria for pre diabetes or diabetes mellitus. (4) Hypertension: Status: Chronic Problem details: Continue home lisinopril (5) VASQUEZ (generalized anxiety disorder): Status: Chronic Problem details: Continue home buspirone and escitalopram (6) Hyperlipidemia: Status: Chronic Problem details: Resume home rosuvastatin (7) Chronic cough: Status: Acute Problem details: pt thinks 2/2 his ACEI - CXR shows atelectasis. Continue incentive spirometry. Encourage IS, sitting up in a chair and ambulation. (8) Obesity (BMI 35.0-39.9 without comorbidity): Status: Acute DS: Summary Hospital Course Hospital Course: Per H&P: 54-year-old Chadd, goes by Wolf, was in his usual state of health until 2 days prior to admission. He relates a burning bloating feeling in his left lower quadrant. He states he has had diverticulitis before and suspected this was happening again. He relates loss of appetite, generalized malaise and fatigue. He is passing gas and stool. Reports minimal emesis. No fever. No chills. He presents to the ED after 48 hours of the symptoms. In 2000 he had a severe presentation of diverticulitis with surgically emergent perforation. He then had a small bowel obstruction in 2018 that required surgical intervention. He has also had a lap cholecystectomy in 2016. ER COURSE: Labs, CT scan. Vasu. General surgery consult. Wolf had persistent pain and elevated WBC, so in consultation with gen surgery, his diet was advanced slowly. He tolerated this well. Today a PICC was placed and he was transitioned to ertapenem. He is discharged home in improved condition. Please see diagnoses above for full details. Time Spent with Patient Time attestation: Total time spent providing and/or coordinating discharge services: Today I spent 40 minutes seeing and discharging the patient, discussing with surgery reviewing Expanse and EPIC notes/diagnostics/labs, discussing the care plan with our care team that includes social work, PT/OT, pharmacy, RT, shelter and documenting my impressions and plan in the medical record. Exam Narrative: Exam Narrative: General: No acute distress. Awake, alert, oriented. No pallor. No jaundice. No coughing today. Oropharynx: Clear. Mucous membranes moist. Cardiovascular: Regular rate and rhythm. No murmurs, gallops, or rubs. Respiratory: Shallow inspiration. Clear to auscultation bilaterally. No wheezes or crackles. Abdomen: Bowel sounds present. Soft, obese, nontender. Extremities: No lower extremity edema. Skin: Dry. Const: Vital Signs, click to edit/add: Vital Signs - 24 hr 01/15/25 16:16 01/15/25 16:16 01/15/25 20:25 Temperature 97.9 F 97.7 F Pulse Rate [Right Pulse Oximeter] 66 66 82 Respiratory Rate 22 22 18 Blood Pressure [Le ft Arm] Blood Pressure [Ri ght Arm] 139/87 126/83 Pulse Oximetry 96 98 Oxygen Delivery Me thod Room Air Room Air 01/15/25 22:55 01/16/25 03:58 01/16/25 07:00 Temperature 98.0 F 97.8 F Pulse Rate [Right Pulse Oximeter] 66 70 70 Respiratory Rate 18 18 18 Blood Pressure [Le ft Arm] 142/89 H Blood Pressure [Ri ght Arm] 149/96 H Pulse Oximetry 98 98 Oxygen Delivery Me thod Room Air Room Air 01/16/25 08:00 01/16/25 11:27 Temperature 98.3 F 98.0 F Pulse Rate [Right Pulse Oximeter] 70 61 Respiratory Rate 18 16 Blood Pressure [Le ft Arm] 128/72 143/90 H Blood Pressure [Ri ght Arm] Pulse Oximetry 96 95 Oxygen Delivery Me thod Room Air Room Air DS: Data Data Completed and Pending Completed studies during hospitalization: Ordering Physician: Dc Hendrickson M.D. Date of Service: 01/13/25 Procedure(s): CT abdomen pelvis w con Accession Number(s): [id number] cc: Dc Hendrickson M.D.; Marvin Kessler M.D.~ For Patients: As a result of the 21st Century Cures Act, medical imaging exams and procedure reports are released immediately into your electronic medical record. You may view this report before your referring provider. If you have questions, please contact your health care provider. INDICATION: Lower abdominal pain. TECHNIQUE: CT abdomen and pelvis acquired with 99 cc Isovue 370 IV contrast. COMPARISON: None. FINDINGS: Lower chest: Bibasilar atelectasis. Liver: Unremarkable. Gallbladder and bile ducts: Cholecystectomy. No suspicious biliary dilatation. Pancreas: Unremarkable. Spleen: Unremarkable. Adrenal glands: Unremarkable. Kidneys: Symmetric renal enhancement. No hydronephrosis or hydroureter. No obstructing calculi. Exophytic left renal cyst. GI tract: Duodenal diverticulum measuring up to 3.0 cm. Colonic diverticulosis with prominent pericolonic edema/inflammatory fat stranding along the sigmoid colon within the left lower quadrant and region of numerous diverticula. Tiny foci of extraluminal gas are noted in the vicinity (for example series 2, image 113). No well-delineated fluid collection/abscess appreciated at this time. No bowel obstruction. Vasculature: No abdominal aortic aneurysm. Grossly patent vasculature. Lymph nodes: No suspicious lymphadenopathy. Peritoneum/Abdominal Wall: Trace ascites. Small foci of free air, as above. No acute abnormality of the abdominal wall. Pelvis: Normal bladder. Unremarkable prostate and seminal vesicles. Bones: No acute abnormality. IMPRESSION: 1. Findings compatible with acute sigmoid colonic diverticulitis with tiny foci of extraluminal gas noted in vicinity of inflamed diverticula, indicative of focal perforation. Surrounding phlegmonous changes are evident without well-delineated fluid collection/abscess appreciated at this time. Please note that all CT scans at this facility use dose modulation, iterative reconstruction, and/or weight-based dosing when appropriate to reduce radiation dose to as low as reasonably achievable. Dictated by Mendez Lau MD @ 01/13/2025 6:55:57 PM (Electronically Signed) Ordering Physician: Mei Vieyra M.D. Date of Service: 01/15/25 Procedure(s): XR chest 2V Accession Number(s): [id number] cc: Mei Vieyra M.D.; Marvin Kessler M.D.~ For Patients: As a result of the Century Cures Act, medical imaging exams and procedure reports are released immediately into your electronic medical record. You may view this report before your referring provider. If you have questions, please contact your health care provider. INDICATION: Cough COMPARISON: None TECHNIQUE: PA and lateral views of the chest were acquired FINDINGS: TUBES AND LINES: None. HEART AND MEDIASTINUM: The heart size is normal. The mediastinal contour appears normal for patient age. LUNGS AND PLEURAL SPACES: Minimal opacity at the left lung base favor atelectasis however aspiration or pneumonia.The pleural spaces are unremarkable. OSSEOUS STRUCTURES: Postoperative changes at the left shoulder joint IMPRESSION: Minimal opacity at the left base favor atelectasis over aspiration or pneumonia. Dictated by Lisandro Barry MD @ 01/15/2025 8:56:00 AM (Electronically Signed) Labs on day of discharge: Labs from last 24 hours 01/16/25 06:10 WBC 6.76 RBC 3.99 L Hgb 12.1 L Hct 35.7 L MCV 90 MCH 30 MCHC 34 RDW Coeff of Govind 12.8 Plt Count 198 Neut % (Auto) 72.1 H Lymph % (Auto) 14.9 L Spencer % (Auto) 10.7 Eos % (Auto) 1.9 Baso % (Auto) 0.3 Neut # (Auto) 4.90 Lymph # (Auto) 1.00 Spencer # (Auto) 0.70 Eos # (Auto) 0.13 Baso # (Auto) 0.02 Abs Immat Gran (auto) 0.01 Imm/Tot Granulo (auto) 0.1 Sodium 139 Potassium 3.7 Chloride 105 Carbon Dioxide 28 Anion Gap 6 L BUN 14 Creatinine 1.0 Estimated Creat Clear 87.85 Estimated GFR 88 Glucose 95 Calcium 8.8 C-Reactive Protein 8.2 H Discharge Plan Discharge Disposition: Home, Self-Care Date of Admission: 01/13/25 20:57 Attending Provider on Discharge: Mei Vieyra Consulting Providers: Audrey Mchugh Primary Care Provider: Marvin Kessler Condition: Improved Anticipated Discharge Date/Time: 01/16/25 13:47 Discharge Medications: Continued escitalopram oxalate 10 mg tablet 10 mg PO DAILY Patient Comments: Take 1 Tablet (10 mg) by mouth every morning sildenafil (pulm.hypertension) 20 mg tablet 20 mg PO Patient Comments: TAKE 2-5 TABLETS BY MOUTH 30 MINUTES BEFORE SEXUAL ACTIVITY NEEDED lisinopril 10 mg tablet 10 mg PO DAILY rosuvastatin 20 mg tablet 20 mg PO QPM buspirone 30 mg tablet 30 mg PO BID Discharge Orders: Discharge Order (Routine); Ordered 01/16/25 Ordered By: Mei Vieyra Additional Instructions: Ertapenem IV daily x 7 days, starting 01/17 Activity Level: No Restrictions Discharge Diet: Low Fiber Follow Up Appointments: Marvin Kessler MD [Primary Care Provider, Family Practice] Referral Note: 7-10 d Audrey Mchugh MD [Staff Physician, General Surgery] Referral Note: next week Forms: Patient Belongings, My[employer] Info Instructions Discharge Comments: Give patient disc from radiology with CT abdomen for him to take home and bring to follow-up appointment.
--- NOTE | 2025-01-16 16:44 | PC.NURSE ---
Pt doing well this shift. VSS. Denies pain or nausea. Ambulating in halls frequently and tolerating well. Pt signed pt belongings and discharge information. Pt discharged at 1630 home via self.
== END 2025-01-16 16:30 | disposition home or self-care (01) | DRG 244 ==
LOC: ED 18:09 → MEDSURG 20:11
PROVIDERS: Family Medicine; Admitting Provider Family Medicine; Emergency Provider Emergency Medicine Emergency Medical Services; PCP Surgery; Visit Provider Family Medicine
DX: K57.20 Diverticulitis of large intestine with perforation and abscess without bleeding (principal); K65.1 Peritoneal abscess; R73.9 Hyperglycemia, unspecified; F41.1 Generalized anxiety disorder; I10 Essential (primary) hypertension; E66.9 Obesity, unspecified; Z68.39 Body mass index [BMI] 39.0-39.9, adult; R05.3 Chronic cough; N52.9 Male erectile dysfunction, unspecified; E78.5 Hyperlipidemia, unspecified
CPT/HCPCS: 36410; 36415; 71046; 74177; 76937; 80048; 80076; 82962; 83036; 83735; 85025; 86140; 87631; 99284; 99285; A4221; A9270; C1751; J1335; J1650; J1885; J2470; J2543; J3480; J7120; Q9967

== ENCOUNTER 2025-01-24 15:36 | Outpatient (CLI) | payer BC, SELFPAY ==
--- NOTE | 2025-01-24 15:30 | CRLHL7_ITS ---
For Patients: As a result of the Century Cures Act, medical imaging exams and procedure reports are released immediately into your electronic medical record. You may view this report before your referring provider. If you have questions, please contact your health care provider. INDICATION: Perforated diverticulitis. TECHNIQUE: CT abdomen and pelvis acquired with 132 cc Isovue 370 IV contrast. COMPARISON: January 13, 2025. FINDINGS: Lower chest: Unremarkable. Liver: Unremarkable. Normal in size and attenuation. No suspicious masses. Gallbladder and bile ducts: Cholecystectomy. Pancreas: Unremarkable. No mass or inflammation. Spleen: Unremarkable. Normal in size. No masses. Adrenal glands: Unremarkable. No nodules. Kidneys: Unremarkable. No suspicious masses, stones, or hydronephrosis. GI tract: Again demonstrated is a perforated diverticulitis in the proximal sigmoid colon. The degree of inflammation has improved. Multiple foci of regional free air in the location has evolved but is not significantly changed. Remainder of the GI tract is unremarkable. Vasculature: Abdominal aorta is normal in caliber. Mesenteric arteries are patent. Lymph nodes: No lymphadenopathy. Peritoneum/Abdominal Wall: No masses or fluid collections. No sign of abscess. Pelvis: Unremarkable. Bones: L5 pars defects with minimal spondylolisthesis at L5-S1. IMPRESSION: Redemonstration of perforated diverticulitis in the proximal sigmoid colon. The inflammation has improved. Regional free air in the location is not significantly changed. No abscess or other new or worsening abnormality. Please note that all CT scans at this facility use dose modulation, iterative reconstruction, and/or weight-based dosing when appropriate to reduce radiation dose to as low as reasonably achievable. Dictated by Chadd Coulter MD @ 01/24/2025 4:31:28 PM (Electronically Signed)
== END 2025-01-24 15:37 | disposition home or self-care (01) ==
LOC: CT 15:36
PROVIDERS: PCP Surgery; Visit Provider Clinical Nurse Specialist
DX: K57.20 Diverticulitis of large intestine with perforation and abscess without bleeding (principal)
CPT/HCPCS: 74177; Q9967

== ENCOUNTER 2025-03-29 15:29 | Outpatient (CLI) | payer BC, SELFPAY ==
--- NOTE | 2025-03-29 16:00 | CRLHL7_ITS ---
For Patients: As a result of the Century Cures Act, medical imaging exams and procedure reports are released immediately into your electronic medical record. You may view this report before your referring provider. If you have questions, please contact your health care provider. Indication: DIVERTICULITIS OF LARGE INTESTINE Technique: CT Abdomen/Pelvis W/ 132CC ISOVUE 370 intravenous contrast Please note that all CT scans at this facility use dose modulation, iterative reconstruction, and/or weight-based dosing when appropriate to reduce radiation dose to as low as reasonably achievable. Comparison: 01/24/2025 Findings: Near-complete resolution of inflammatory changes about the sigmoid colon compared to the prior exam. No abscess. Postop changes to the colon again noted. The bladder is normal. No fistula. No adenopathy. Duodenal diverticulum. Liver normal. Gallbladder absent. Spleen within normal limits. Normal adrenal glands. Incidental cyst arises from the lower pole of the left kidney. Normal right kidney. Pancreas normal. Chronic pars defects L5. No vertebral body compression fracture. Dependent atelectasis in both lung bases. Impression: Near-complete resolution of inflammatory changes about the sigmoid colon compared to the prior study. No fistula or abscess. No free air. Please note that all CT scans at this facility use dose modulation, iterative reconstruction, and/or weight-based dosing when appropriate to reduce radiation dose to as low as reasonably achievable. Dictated by Hank Joseph MD @ 03/30/2025 10:43:31 AM (Electronically Signed)
== END 2025-03-29 15:30 | disposition home or self-care (01) ==
LOC: CT 15:30
PROVIDERS: PCP Surgery; Visit Provider Student in an Organized Health Care Education/Training Program
DX: K57.20 Diverticulitis of large intestine with perforation and abscess without bleeding (principal)
CPT/HCPCS: 74177; Q9967